=== PATIENT | female | born 1970 | race Caucasian/White ===

== ENCOUNTER 2020-07-17 10:55 | Outpatient (REF) | payer OTHER, SELFPAY ==
[2020-07-17 11:31] LABS: MANUAL DIFF FLAG NO
[2020-07-17 11:37] LABS: Basophils Percent Auto 0.3 % (0-2); Eosinophils Absolute Auto 0.1 X10*3/uL (0.0-0.4); Hematocrit 40.8 % (37-47); Hemoglobin 13.4 g/dl (12.0-16.0); Imm Gran Abs Auto 0.03 X10*3/uL (0.00-0.03); Imm Gran Pct Auto 0.5 % (0.0-0.4); Lymphocytes Absolute Auto 2.1 X10*3/uL (1.2-4.9); Lymphocytes Percent Auto 30.8 % (20-40); Mean Corpuscular HGB Conc 32.8 g/dl (31.0-35.0); Mean Corpuscular Hemoglobin 29.6 pg (27.0-33.0); Mean Corpuscular Volume 90.3 fL (80-98); Mean Platelet Volume 9.8 fL (9.4-12.3); Monocytes Absolute Auto 0.6 X10*3/uL (0.1-1.2); Monocytes Percent Auto 9.2 % (2-11); Neutrophils Absolute Auto 3.8 X10*3/uL (2.0-8.3); Neutrophils Percent Auto 57.2 % (45-73); Platelet Count 238 X10*3/uL (160-400); Red Blood Count 4.52 X10*6/uL (4.20-5.50); Red Cell Distribution Width 13.2 % (11.0-16.0); White Blood Count 6.7 X10*3/uL (4.8-10.8)
[2020-07-17 11:59] LABS: Alanine Aminotransferase 17 U/L (0-31); Alkaline Phosphatase 81 U/L (39-117); Anion Gap 12 (12-20); Aspartate Amino Transferase 17 U/L (5-31); Bilirubin Total 0.3 mg/dL (0.0-1.0); Blood Urea Nitrogen 23 mg/dL (9-16); Calcium 8.9 mg/dL (8.4-10.2); Carbon Dioxide 26 mmol/L (22-29); Chloride 104 mmol/L (96-108); Cholesterol 159 mg/dL; Estimated Glomerular Filt Rate > 60; Glucose Fasting 92 mg/dL (60-99); HDL Cholesterol 51 mg/dL; Iron 80 mcg/dL (30-160); LDL Cholesterol Calculated 79 mg/dl; Percent Iron Saturation 19 % (15-50); Potassium 4.1 mmol/l (3.3-5.1); Sodium 138 mmol/L (135-145); Total Iron Binding Capacity 411 mcg/dL (228-428); Total Protein 6.8 g/dL (6.5-8.0); Triglycerides 145 mg/dL; Unsaturated Iron Binding 331 ug/dL
[2020-07-17 12:30] LABS: TSH reflex Free T4 2.78 mIU/mL (0.32-4.0); Vitamin D 25-OH Total 5.2 ng/mL (>30)
== END 2020-07-17 10:56 | disposition home or self-care (01) ==
LOC: HO.LAB 10:55
PROVIDERS: PCP Family Medicine; Visit Provider Family Medicine
DX: Z86.39 Personal history of other endocrine, nutritional and metabolic disease (principal); D64.9 Anemia, unspecified
CPT/HCPCS: 36415; 80053; 80061; 82306; 83540; 84443; 85025

== ENCOUNTER 2020-08-03 16:42 | Outpatient (REF) | payer OTHER, SELFPAY ==
[2020-08-03 18:23] LABS: Vitamin D 25-OH Total 24.9 ng/mL (>30)
== END 2020-08-03 16:43 | disposition home or self-care (01) ==
LOC: HO.LAB 16:42
PROVIDERS: PCP Family Medicine; Visit Provider Family Medicine
DX: E55.9 Vitamin D deficiency, unspecified (principal)
CPT/HCPCS: 36415; 82306

== ENCOUNTER 2020-09-25 15:24 | Outpatient (REF) | payer OTHER, SELFPAY ==
[2020-09-25 16:50] LABS: Vitamin D 25-OH Total 55.8 ng/mL (>30)
== END 2020-09-25 15:25 | disposition home or self-care (01) ==
LOC: HO.LAB 15:24
PROVIDERS: PCP Family Medicine; Visit Provider Family Medicine
DX: E55.9 Vitamin D deficiency, unspecified (principal)
CPT/HCPCS: 36415; 82306

== ENCOUNTER 2020-12-26 15:45 | Outpatient (REF) | payer OTHER, SELFPAY ==
[2020-12-26 17:33] LABS: Vitamin D 25-OH Total 39.3 ng/mL (>30)
== END 2020-12-26 15:46 | disposition home or self-care (01) ==
LOC: HO.LAB 15:45
PROVIDERS: PCP Family Medicine; Visit Provider Family Medicine
DX: E55.9 Vitamin D deficiency, unspecified (principal)
CPT/HCPCS: 36415; 82306

== ENCOUNTER 2021-03-30 15:06 | Outpatient (REF) | payer OTHER, SELFPAY ==
[2021-03-30 16:23] LABS: Alanine Aminotransferase 132 U/L (0-31); Albumin Level 4.1 g/dL (3.5-5.0); Alkaline Phosphatase 91 U/L (39-117); Anion Gap 12 (12-20); Aspartate Amino Transferase 143 U/L (5-31); Bilirubin Total 0.2 mg/dL (0.0-1.0); Blood Urea Nitrogen 19 mg/dL (9-16); Calcium 9.2 mg/dL (8.4-10.2); Carbon Dioxide 27 mmol/L (22-29); Chloride 105 mmol/L (96-108); Estimated Glomerular Filt Rate > 60; Glucose Random 102 mg/dL (60-115); Potassium 4.2 mmol/L (3.3-5.1); Sodium 140 mmol/L (135-145); Total Protein 6.7 g/dL (6.5-8.0)
== END 2021-03-30 15:07 | disposition home or self-care (01) ==
LOC: HO.LAB 15:06
PROVIDERS: PCP Family Medicine; Visit Provider Family Medicine
DX: M85.80 Other specified disorders of bone density and structure, unspecified site (principal); E55.9 Vitamin D deficiency, unspecified
CPT/HCPCS: 36415; 80053; 82306

== ENCOUNTER 2021-04-19 15:01 | Outpatient (REF) | payer OTHER, SELFPAY ==
[2021-04-19 15:49] LABS: Appearance Urine HAZY; Color Urine YELLOW; Glucose Urine UA NEG (NEG); Leukocyte Esterase Urine NEG (NEG); Nitrite Urine NEG (NEG); Specific Gravity - Urine >= 1.030 (1.005-1.025); Urine Blood TRACE (NEG); Urine Ketones NEG (NEG); Urine Protein NEG (NEG-TRACE)
[2021-04-19 16:05] LABS: Bacteria Urine TRACE /LPF; Mucus Urine 1+ /LPF; Renal Epithelial Cells Urine TRACE /LPF; Squamous Epithelial Cell Urine 1+ /LPF; WBC Urine 0-2 /HPF (0-4)
[2021-04-19 16:05] LABS: Alanine Aminotransferase 156 U/L (0-31); Alkaline Phosphatase 102 U/L (39-117); Anion Gap 12 (12-20); Aspartate Amino Transferase 116 U/L (5-31); Bilirubin Total 0.2 mg/dL (0.0-1.0); Blood Urea Nitrogen 16 mg/dL (9-16); Calcium 9.3 mg/dL (8.4-10.2); Carbon Dioxide 27 mmol/L (22-29); Chloride 105 mmol/L (96-108); Estimated Glomerular Filt Rate > 60; Glucose Random 136 mg/dL (60-115); Potassium 3.9 mmol/L (3.3-5.1); Sodium 140 mmol/L (135-145); Total Protein 6.6 g/dL (6.5-8.0)
== END 2021-04-19 15:02 | disposition home or self-care (01) ==
LOC: HO.LAB 15:01
PROVIDERS: PCP Family Medicine; Visit Provider Family Medicine
DX: R74.8 Abnormal levels of other serum enzymes (principal)
CPT/HCPCS: 36415; 80053; 81001

== ENCOUNTER 2022-02-12 14:11 | Outpatient (REF) | payer OTHER, SELFPAY ==
[2022-02-12 14:36] LABS: MANUAL DIFF FLAG NO
[2022-02-12 15:43] LABS: Appearance Urine Clear; Color Urine Yellow; Glucose Urine UA Negative (Negative); Leukocyte Esterase Urine Negative (Negative); Nitrite Urine Negative (Negative); PH 6.5 (5.0-8.0); Specific Gravity - Urine 1.015 (1.005-1.025); Urine Blood Negative (Negative); Urine Ketones Negative (Negative); Urine Protein Negative (Neg-Trace)
[2022-02-12 15:46] LABS: Basophils Percent Auto 0.4 % (0-2); Eosinophils Absolute Auto 0.2 X10*3/uL (0.0-0.4); Eosinophils Percent Auto 2.2 % (0-4); Hematocrit 42.4 % (37.0-47.0); Hemoglobin 14.5 g/dl (12.0-16.0); Imm Gran Abs Auto 0.02 X10*3/uL (0.00-0.03); Imm Gran Pct Auto 0.3 % (0.0-0.4); Lymphocytes Absolute Auto 2.5 X10*3/uL (1.2-4.9); Mean Corpuscular HGB Conc 34.2 g/dl (31.0-35.0); Mean Corpuscular Hemoglobin 31.7 pg (27.0-33.0); Mean Corpuscular Volume 92.8 fL (80.0-98.0); Mean Platelet Volume 10.8 fL (9.4-12.3); Monocytes Absolute Auto 0.6 X10*3/uL (0.1-1.2); Monocytes Percent Auto 8.9 % (2-11); Neutrophils Absolute Auto 3.9 x10*3/uL (2.0-8.3); Neutrophils Percent Auto 53.2 % (45-73); Platelet Count 183 X10*3/uL (160-400); Red Blood Count 4.57 X10*6/uL (4.20-5.50); White Blood Count 7.2 X10*3/uL (4.8-10.8)
[2022-02-12 16:31] LABS: Creatinine Urine 164.24 mg/dL; Microalbum/Creatinine Ratio Ur 4.8 ug/mg cr
[2022-02-12 16:33] LABS: Alanine Aminotransferase 17 U/L (0-31); Albumin Level 4.5 g/dL (3.5-5.0); Alkaline Phosphatase 78 U/L (39-117); Anion Gap 15 (12-20); Aspartate Amino Transferase 22 U/L (5-31); Bilirubin Total 0.3 mg/dL (0.0-1.0); Blood Urea Nitrogen 12 mg/dL (9-16); Calcium 9.7 mg/dL (8.4-10.2); Carbon Dioxide 26 mmol/L (22-29); Chloride 103 mmol/L (96-108); Cholesterol 228 mg/dL; Estimated Glomerular Filt Rate > 60; Glucose Fasting 83 mg/dL (60-99); HDL Cholesterol 62 mg/dL; LDL Cholesterol Calculated 137 mg/dl; Potassium 4.3 mmol/L (3.3-5.1); Sodium 140 mmol/L (135-145); Total Protein 7.2 g/dL (6.5-8.0); Triglycerides 145 mg/dL
== END 2022-02-12 14:12 | disposition home or self-care (01) ==
LOC: HO.LAB 14:11
PROVIDERS: PCP Family Medicine; Visit Provider Family Medicine
DX: Z00.00 Encounter for general adult medical examination without abnormal findings (principal); I10 Essential (primary) hypertension
CPT/HCPCS: 36415; 80053; 80061; 81003; 82043; 84443; 85025

== ENCOUNTER 2022-05-16 10:23 | Outpatient (REF) | payer OTHER, SELFPAY ==
[2022-05-16 14:47] LABS: Influenza A PCR NEGATIVE (Negative); Influenza B PCR NEGATIVE (Negative); Resp Syncy Virus RNA Qual PCR NEGATIVE (Negative); SARS COV2 PCR INHOUSE NEGATIVE (Negative)
== END 2022-05-16 10:24 | disposition home or self-care (01) ==
LOC: HO.LAB 10:23
PROVIDERS: Visit Provider Nurse Practitioner Family
DX: R09.89 Other specified symptoms and signs involving the circulatory and respiratory systems (principal); Z20.822 Contact with and (suspected) exposure to COVID-19
CPT/HCPCS: 0241U

== ENCOUNTER 2022-05-21 15:03 | Outpatient (REF) | payer OTHER, SELFPAY ==
[2022-05-25 13:03] LABS: Rast Allergen SEE COMMENTS
== END 2022-05-21 15:04 | disposition home or self-care (01) ==
LOC: HO.LAB 15:03
PROVIDERS: PCP Family Medicine; Visit Provider Otolaryngology
DX: J30.89 Other allergic rhinitis (principal)
CPT/HCPCS: 36415; 82785; 86003

== ENCOUNTER 2022-06-21 14:50 | Outpatient (REF) | payer OTHER, SELFPAY ==
[2022-06-21 15:48] LABS: COVID-19 Test Negative (Negative); IDNOW Serial# BCCEAD1C
== END 2022-06-21 14:51 | disposition home or self-care (01) ==
LOC: HO.LAB 14:50
PROVIDERS: Visit Provider Internal Medicine
DX: Z20.822 Contact with and (suspected) exposure to COVID-19 (principal)
CPT/HCPCS: 87635; C9803

== ENCOUNTER 2023-02-11 13:33 | Outpatient (AMB) | payer OTHER, SELFPAY ==
[2023-02-11 13:44] VITALS: BP 126/70; PULSE 120; RESP 12; TEMP 36.1; O2SAT 98; BMI 33.4
--- NOTE | 2023-02-11 13:44 | A.OFFPC_ITS ---
Vital Signs 02/11/23 13:44 Height 5 ft 2 in Weight 182 lb 6 oz BMI 33.4 BP 126/70 Blood Pressure Location Lt brachial Position Sitting Respiration 12 Pulse 120 H Pulse Source Pulse Oximeter Temp 97 F Temp Source Temporal Artery Scan Pulse Oximetry (%) 98 Oxygen Delivery Method Room Air Intake Visit Reasons: Body aches, chills, sore throat, headaches Intake Note: Patient states that her symptoms started Friday afternoon. headache, sore throat, body aches, and chills Tug Captain Required: No Accompanied by: Self / Same As Patient Allergies environmental allergies Allergy (Intermediate, Verified 02/11/23 14:22) Runny Nose erythromycin base Allergy (Unknown, Verified 02/11/23 14:22) Hives paclitaxel [From Taxol] Allergy (Unknown, Verified 02/11/23 14:22) Unknown Iodinated Contrast Media Allergy (Verified 02/11/23 14:22) Hives Medication List - Last Reconciled 02/11/23 by Haydee Coe CNP acetaminophen 650 mg PO Q4H PRN anastrozole 1 mg PO DAILY blood pressure monitor Automatic, Digital. Daily As directed, 999 days/Lifetime calcium citrate 250 mg PO DAILY cholecalciferol (vitamin D3) 4,000 units PO DAILY 30 days desvenlafaxine succinate ER 100 mg PO DAILY folic acid 0.4 mg PO DAILY hydrochlorothiazide 12.5 mg PO DAILY levocetirizine 5 mg PO DAILY melatonin 3 mg PO BEDTIME PRN turmeric mg PO Tobacco use date assessed: 02/11/23 Dental Screening Dental Screen Date: 02/11/23 Did you have a dental visit in the last 12 months?: Yes Did you have a dental problem in the last 6 months where you did not have access to dental care?: No Was dental information given to patient?: Patient has dentist HPI HPI Comments History of Present Illness Details 52-year-old female presents with complaints of headache, sore throat, body aches, and chills. She reports associated fatigue and mild nausea. She notes her symptoms have been ongoing for the past 3 days and have not progress. She has been taking Excedrin migraine with improvement of the headache. She denies sick contact. [facility] Medical History No pertinent past medical history Surgical History H/O laparoscopy History of mastectomy History of oral surgery History of reconstruction of both breasts Family History Father Depression HTN (hypertension) CVD (cardiovascular disease) Mother Arrhythmia Anxiety Eating disorder Maternal Grandmother Lung cancer Maternal Grandfather Lupus Emphysema, unspecified Paternal Grandmother Anorexia Heart failure Paternal Grandfather Heart disease Parkinson disease Brother No problems noted. Sister No problems noted. Social History Housing: House Alcohol intake: never Patient Tobacco Use Status: Never used Tobacco e-Cigarette/Vaping Use: Never Used Second Hand Smoke Exposure: No service: No Current occupational status: unemployed Current occupational exposures/hazards: No Cognitive needs: No Hearing needs: No Vision needs: No Questionnaire Thrive Questionnaire Date Thrive assessed: 05/20/22 NOHEMI-7 AMB Questionnaire NOHEMI-7 Date NOHEMI - 7 assessed: 04/25/21 Source: Developed by Drs. Jay Jay Mcintosh, Edyta Verduzco, Bryan Hensley and colleagues, with an educational kathi from [employer]. Review of Systems Const Details: Const Reports chills, Reports fatigue, Denies fever(s), reports headache(s) and Denies weakness ENT Reports as per HPI Card Denies chest pain, Denies lightheadedness, Denies dyspnea and Denies other (Palpitations) Resp Denies cough, Denies dyspnea, Denies wheezing and Denies other ( shortness of breath) GI Denies abdominal pain, Denies melena, Denies hematochezia, Denies change in bowel habits, Denies dyspepsia and Denies nausea Denies hematuria and Denies dysuria Musc Denies abnormal gait, Denies myalgias, Denies arthralgias, Denies numbness and Denies tingling Skin/Breast Denies rash, Denies unusual bruising and Denies wounds Neuro Denies abnormal gait, Denies dizziness, Denies headache(s), Denies memory loss, Denies numbness, Denies Sensory deficit (Neuro), Denies tingling and Denies weakness Psych Denies anxiety, Denies depression, Denies memory loss Endo Denies cold intolerance, Reports fatigue, Denies heat intolerance, Denies polydipsia and Denies polyuria Aller/Immun Denies wheezing Physical exam (Primary Care) Vital Signs: Last Vital Signs Temp 97 F 02/11/23 13:44 Pulse 120 H 02/11/23 13:44 Resp 12 02/11/23 13:44 BP 126/70 02/11/23 13:44 Pulse Ox 98 02/11/23 13:44 Oxygen Delivery Method Room Air 02/11/23 13:44 BMI result Body Mass Index 33.4 Tobacco/Smoking Status: Tobacco use Status Tobacco use date assessed 02/11/23 02/11/23 13:56 Patient Tobacco Use Status Never used Tobacco 02/11/23 13:56 e-Cigarette/Vaping Use Never Used 02/11/23 13:56 Thrive Assessment: Date of Thrive Assessment Date Thrive assessed 05/20/22 02/11/23 13:56 Const Other: General: no acute distress and well developed Nutritional Appearance: well nourished Orientation/consciousness: patient oriented x3 HENMT Head is normocephalic Bilateral ear canal and TM are normal Nasal turbinates are pink and moist Significant erythema and yellow patches noted to the oropharynx, tonsils are enlarged Sinuses are nontender with palpation No auricular or cervical lymphadenopathy Eyes General: appearance normal, both eyes and all related structures Pupils: Equal, round and reactive pupils present EOM: EOMs intact bilaterally Resp Effort & Inspection: normal respiratory effort Auscultation: clear to auscultation bilaterally Cardio Rate: regular rate Rhythm: regular rhythm Heart sounds: S1 normal heart sound present, S2 normal heart sound present, no gallops, no murmurs and no rubs GI Palpation (GI): No Abdominal aortic bruit present, Soft to palpation, nontender, No hepatosplenomegaly present and No Rebound tenderness present Auscultation: normal bowel sounds General: Yes no CVA tenderness Back/Spine/Pelvis Back: no CVA tenderness Cervical Spine: cervical ROM normal and No Cervical spine tenderness Thoracic/Lumbar Spine: thoraco-lumbar ROM normal, No pain with thoraco-lumbar ROM, No thoracic spinal tenderness and No lumbar spinal tenderness Extrem General: Yes normal to inspection, No edema and No calf tenderness Skin General: warm and dry. Normal skin color. Normal skin turgor Neuro General: patient oriented x3, gait normal and no focal neuro deficit Cranial nerves: Yes Equal, round and reactive pupils present Cognition (Neuro): normal cognition Gait exam (Neuro): Normal gait present Sensory Exam: No Sensory deficit (Neuro) Psych Appearance: grossly normal Affect: normal affect Attitude: cooperative Thought process: Normal thought process present Assessment and Plan Assessment & Plan (1) Strep pharyngitis: Code(s): J02.0 - Streptococcal pharyngitis Plan: Significant erythema and yellow patches noted to the oropharynx, tonsils are enlarged Amoxicillin ordered. Take as prescribed May take Tylenol or ibuprofen for pain, fever, or discomfort May gargle with warm salt water Adequate hydration encouraged Avoid kissing or sharing of utensils to limit spread Return with worsening or new symptoms Verbalized understanding and agreed with treatment plan Medications: New amoxicillin 500 mg PO BID 10 days 20 tabs 0RF Coding Level of Care Code Est Pt Level 3 (04996) Diagnoses Strep pharyngitis J02.0 Time Spent (min) 25
== END 2023-02-11 14:37 | disposition home or self-care (01) ==
PROVIDERS: PCP Family Medicine; Visit Provider Nurse Practitioner Family
DX: J02.0 Streptococcal pharyngitis (principal)
CPT/HCPCS: 99213

== ENCOUNTER 2023-02-18 13:52 | Outpatient (REF) | payer OTHER, SELFPAY ==
[2023-02-18 14:03] LABS: MANUAL DIFF FLAG NO
[2023-02-18 14:46] LABS: Basophils Percent Auto 0.5 % (0-2); Eosinophils Absolute Auto 0.2 X10*3/uL (0.0-0.4); Eosinophils Percent Auto 1.7 % (0-4); Hematocrit 42.2 % (37.0-47.0); Hemoglobin 14.2 g/dl (12.0-16.0); Imm Gran Abs Auto 0.15 X10*3/uL (0.00-0.03); Imm Gran Pct Auto 1.7 % (0.0-0.4); Lymphocytes Absolute Auto 3.1 X10*3/uL (1.2-4.9); Lymphocytes Percent Auto 35.7 % (20-40); Mean Corpuscular HGB Conc 33.6 g/dl (31.0-35.0); Mean Corpuscular Hemoglobin 30.5 pg (27.0-33.0); Mean Corpuscular Volume 90.8 fL (80.0-98.0); Mean Platelet Volume 10.1 fL (9.4-12.3); Monocytes Absolute Auto 0.5 X10*3/uL (0.1-1.2); Neutrophils Absolute Auto 4.7 x10*3/uL (2.0-8.3); Neutrophils Percent Auto 54.4 % (45-73); Platelet Count 282 X10*3/uL (160-400); Red Blood Count 4.65 X10*6/uL (4.20-5.50); Red Cell Distribution Width 12.1 % (11.0-16.0); White Blood Count 8.7 X10*3/uL (4.8-10.8)
[2023-02-18 14:51] LABS: Appearance Urine Clear; Color Urine Yellow; Glucose Urine UA Negative (Negative); Leukocyte Esterase Urine Small (1+) (Negative); Nitrite Urine Negative (Negative); UMIC TRIGGER UA YES; Urine Blood Negative (Negative); Urine Ketones Trace mg/dL (Negative); Urine Protein Trace mg/dL (Neg-Trace)
[2023-02-18 15:03] LABS: Bacteria Urine None Seen (None Seen); Hyaline Casts Urine 0-2 /LPF (0-2); Squamous Epithelial Cell Urine >20 /HPF (0-2); WBC Urine 0-5 /HPF (0-5)
[2023-02-18 15:20] LABS: Alanine Aminotransferase 15 U/L (0-31); Albumin Level 4.4 g/dL (3.5-5.0); Alkaline Phosphatase 74 U/L (39-117); Anion Gap 12 (12-20); Aspartate Amino Transferase 17 U/L (5-31); Bilirubin Total 0.3 mg/dL (0.0-1.0); Blood Urea Nitrogen 14 mg/dL (9-16); Calcium 10.2 mg/dL (8.4-10.2); Carbon Dioxide 26 mmol/L (22-29); Chloride 104 mmol/L (96-108); Cholesterol 228 mg/dL (<200); Estimated Glomerular Filt Rate > 60; Glucose Fasting 99 mg/dL (60-99); HDL Cholesterol 49 mg/dL (>40); LDL Cholesterol Calculated 128 mg/dL (<100); Sodium 138 mmol/L (135-145); Total Protein 7.8 g/dL (6.5-8.0); Triglycerides 256 mg/dL (<150)
[2023-02-18 15:37] LABS: Vitamin D 25-OH Total 82.5 ng/mL (>30)
[2023-02-18 17:02] LABS: Creatinine Urine 214.59 mg/dL; Microalbum/Creatinine Ratio Ur 3.7 ug/mg cr (<30)
== END 2023-02-18 13:53 | disposition home or self-care (01) ==
LOC: HO.LAB 13:52
PROVIDERS: PCP Family Medicine; Visit Provider Family Medicine
DX: Z00.00 Encounter for general adult medical examination without abnormal findings (principal); E55.9 Vitamin D deficiency, unspecified; I10 Essential (primary) hypertension
CPT/HCPCS: 36415; 80053; 80061; 81001; 82043; 82306; 84443; 85025

== ENCOUNTER 2023-03-04 11:47 | Outpatient (AMB) | payer OTHER, SELFPAY ==
[2023-03-04 12:01] VITALS: BP 118/62; PULSE 86; O2SAT 98; BMI 34.0
--- NOTE | 2023-03-04 12:01 | A.OFFPC_ITS ---
Vital Signs 03/04/23 12:01 Height 5 ft 2 in Weight 186 lb BMI 34.0 BP 118/62 Blood Pressure Location Lt brachial Position Sitting Pulse 86 Pulse Source Pulse Oximeter Pulse Oximetry (%) 98 Oxygen Delivery Method Room Air Intake Visit Reasons: CPE with f/u labs and health maint. Intake Note: Patient is here for a physical today. She was seen at [facility] on the 03/01 for dx of Mnaning's palsey. Patient is also requesting 90 days refill on her blood pressure medication. Allergies environmental allergies Allergy (Intermediate, Verified 03/04/23 12:07) Runny Nose erythromycin base Allergy (Unknown, Verified 03/04/23 12:07) Hives paclitaxel [From Taxol] Allergy (Unknown, Verified 03/04/23 12:07) Unknown Iodinated Contrast Media Allergy (Verified 03/04/23 12:07) Hives Medication List - Last Reconciled 03/04/23 by Elver Garnett MD acetaminophen 650 mg PO Q4H PRN anastrozole 1 mg PO DAILY blood pressure monitor Automatic, Digital. Daily As directed, 999 days/Lifetime calcium citrate 250 mg PO DAILY cholecalciferol (vitamin D3) 4,000 units PO DAILY 30 days desvenlafaxine succinate ER 100 mg PO DAILY folic acid 0.4 mg PO DAILY hydrochlorothiazide 12.5 mg PO DAILY 90 days levocetirizine 5 mg PO DAILY melatonin 3 mg PO BEDTIME PRN turmeric mg PO Tobacco use date assessed: 02/11/23 Dental Screening Dental Screen Date: 03/04/23 Did you have a dental visit in the last 12 months?: No Did you have a dental problem in the last 6 months where you did not have access to dental care?: No Was dental information given to patient?: Patient has dentist HPI CPE with f/u labs and health maint. HPI Details 52 y/o female presents for a CPE with f/u labs and health maintenance. Labs were drawn 02/18/23. Reviewed labs with pt. Triglycerides 256. TC 228. LDL 128. HDL 49. Blood pressure today 118/62. She is on HCTZ 12.5mg daily. Pt reports she has a mammogram coming up in April. She reports pap smear last June. HPI Comments History of Present Illness Details Documentation assistance for Elver Garnett MD, was provided by Faustino Llenardo Silveira,? [employer] on 03/04/2023 12:29 PM EST. I, Dr. Garnett, have read, observed, and verified documentation.? PFSH Medical History No pertinent past medical history Surgical History H/O laparoscopy History of mastectomy History of oral surgery History of reconstruction of both breasts Family History Father Depression HTN (hypertension) CVD (cardiovascular disease) Mother Arrhythmia Anxiety Eating disorder Maternal Grandmother Lung cancer Maternal Grandfather Lupus Emphysema, unspecified Paternal Grandmother Anorexia Heart failure Paternal Grandfather Heart disease Parkinson disease Brother No problems noted. Sister No problems noted. Social History Housing: House Alcohol intake: never Patient Tobacco Use Status: Never used Tobacco e-Cigarette/Vaping Use: Never Used Second Hand Smoke Exposure: No service: No Current occupational status: unemployed Current occupational exposures/hazards: No Cognitive needs: No Hearing needs: No Vision needs: No Questionnaire Thrive Questionnaire Date Thrive assessed: 05/20/22 NOHEMI-7 AMB Questionnaire NOHEMI-7 Date NOHEMI - 7 assessed: 04/25/21 Source: Developed by Drs. Jay Jay Mcintosh, Edyta Verduzco, Bryan Hensley and colleagues, with an educational kathi from [employer]. Review of Systems Const Denies chills, Denies fatigue, Denies fever(s), Denies headache(s) and Denies weakness Eyes Denies change in vision ENT Denies dizziness, Denies headache(s), Denies hearing loss, Denies nasal congestion, Denies sinus pain, Denies sinus pressure and Denies sore throat Card Denies chest pain, Denies lightheadedness, Denies dyspnea and Denies other (pa lpitations) Resp Denies cough, Denies dyspnea and Denies wheezing GI Denies abdominal pain, Denies melena, Denies hematochezia, Denies change in bowel habits, Denies dyspepsia and Denies nausea Denies hematuria and Denies dysuria Musc Denies abnormal gait, Denies myalgias, Denies arthralgias, Denies numbness and Denies tingling Skin/Breast Denies rash, Denies unusual bruising and Denies wounds Neuro Denies abnormal gait, Denies dizziness, Denies headache(s), Denies memory loss, Denies numbness, Denies Sensory deficit (Neuro), Denies tingling and Denies weakness Psych Denies anxiety, Denies depression and Denies memory loss Endo Denies cold intolerance, Denies fatigue, Denies heat intolerance, Denies polydipsia and Denies polyuria Logan/Lymph Denies easy bleeding and Denies easy bruising Aller/Immun Denies wheezing Physical exam (Primary Care) Vital Signs: Last Vital Signs Pulse 86 03/04/23 12:01 BP 118/62 03/04/23 12:01 Pulse Ox 98 03/04/23 12:01 Oxygen Delivery Method Room Air 03/04/23 12:01 BMI result Body Mass Index 34.0 Tobacco/Smoking Status: Tobacco use Status Tobacco use date assessed 02/11/23 03/04/23 12:02 Patient Tobacco Use Status Never used Tobacco 03/04/23 12:02 e-Cigarette/Vaping Use Never Used 03/04/23 12:02 Thrive Assessment: Date of Thrive Assessment Date Thrive assessed 05/20/22 03/04/23 12:02 Const General: no acute distress, well developed, alert and awake Nutritional Appearance: obese Orientation/consciousness: patient oriented x3 HENMT Head: Yes normocephalic and Yes atraumatic Ears: hearing grossly normal bilaterally and TM's normal bilaterally General nose exam: Normal external nose present and Normal nares present Mouth: Normal oral and palatal mucosa present and moist mucous membranes Teeth and gingiva: dentition normal Throat: Yes posterior oropharynx normal Eyes General: appearance normal, both eyes and all related structures Pupils: Equal, round and reactive pupils present and Pupil accommodation reflex normal EOM: EOMs intact bilaterally Neck Neck: Yes normal visual inspection, Yes no lymphadenopathy and Yes trachea midline Thyroid: Thyroid normal Carotids: no bruits Lymphatic: no lymphadenopathy noted Chest Chest palpation & inspection: normal inspection of the chest Resp Effort & Inspection: normal respiratory effort Auscultation: clear to auscultation bilaterally Cardio Rate: regular rate Rhythm: regular rhythm Heart sounds: S1 normal heart sound present, S2 normal heart sound present, no gallops, no murmurs and no rubs Bruits: no abdominal aortic bruits and no carotid bruits GI Palpation (GI): No Abdominal aortic bruit present, Soft to palpation, nontender, No hepatosplenomegaly present and No Rebound tenderness present Auscultation: normal bowel sounds General: Yes no CVA tenderness Back/Spine/Pelvis Back: no CVA tenderness Cervical Spine: cervical ROM normal and No Cervical spine tenderness Thoracic/Lumbar Spine: thoraco-lumbar ROM normal, No pain with thoraco-lumbar ROM, No thoracic spinal tenderness and No lumbar spinal tenderness Skin Lesions: no lesions Rashes: no rashes Trauma: no lacerations or abrasions Wounds: no wounds Nails: normal Neuro General: patient oriented x3 Cranial nerves: Yes Equal, round and reactive pupils present Cognition (Neuro): normal cognition Gait exam (Neuro): Normal gait present Motor exam (neuro): 5/5 motor strength present throughout Sensory Exam: No Sensory deficit (Neuro) Deep tendon reflexes (DTR's): Right patellar reflex intensity grade: 2+ and Left patellar reflex intensity grade: 2+ Extrem General: Yes normal to inspection and No edema Psych Appearance: grossly normal Affect: normal affect Attitude: cooperative Thought process: Normal thought process present Assessment and Plan Assessment & Plan (1) Adult general medical exam: Code(s): Z00.00 - Encounter for general adult medical examination without abnormal findings Plan: 52-year-old female presents for complete physical exam Encouraged healthy diet with active lifestyle and plenty of exercise (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 Can also use B12 Keep I closed and well moisturized with gel eye drops or ointment. Referred to ophthalmology (3) Essential hypertension: Code(s): I10 - Essential (primary) hypertension Plan: Blood pressure is controlled. Goal is less than 140/90 Continue current medications (4) Hypertriglyceridemia: Code(s): E78.1 - Pure hyperglyceridemia Plan: Encouraged a diet lower in saturated fats and cholesterol Continue weight loss and exercise Watch carbohydrates (5) Screening for colon cancer: Code(s): Z12.11 - Encounter for screening for malignant neoplasm of colon Plan: Followed by gastroenterology Has appointment in 6 months for follow-up (6) Screening for cervical cancer: Code(s): Z12.4 - Encounter for screening for malignant neoplasm of cervix Plan: Up-to-date Follow-up with administrative project coordinator as recommended (7) Breast cancer screening by mammogram: Code(s): Z12.31 - Encounter for screening mammogram for malignant neoplasm of breast Plan: Followed by Heme-Onc Up to date Orders: Orders Lyme IgG/IgM w/reflex to WB Today G51.0 - Manning's palsy IRON PROFILE Today G51.0 - Manning's palsy Referrals Ophthalmology Referral G51.0 - Manning's palsy Medications: New mecobalamin (vitamin B12) 1,000 mcg PO DAILY 90 days 90 tabs 2RF hydrochlorothiazide 12.5 mg PO DAILY 90 days 90 tabs 3RF Changed From cholecalciferol (vitamin D3) 4,000 units PO DAILY 30 days 30 caps 3RF G51.0 - Manning's palsy To cholecalciferol (vitamin D3) 2,000 units PO DAILY 30 days 30 caps 3RF G51.0 - Manning's palsy Coding Level of Care Code Est Pt Level 3 (78223) Est Pt Prev Care 40-64y(12204) Diagnoses Adult general medical exam Z00.00 Manning's palsy G51.0 Essential hypertension I10 Hypertriglyceridemia E78.1 Screening for colon cancer Z12.11 Screening for cervical cancer Z12.4 Breast cancer screening by mammogram Z12.31
== END 2023-03-04 12:59 | disposition home or self-care (01) ==
PROVIDERS: Visit Provider Family Medicine
DX: Z00.00 Encounter for general adult medical examination without abnormal findings (principal); G51.0 Bell's palsy; I10 Essential (primary) hypertension; E78.1 Pure hyperglyceridemia
CPT/HCPCS: 99396

== ENCOUNTER 2023-03-11 10:31 | Outpatient (AMB) | payer OTHER, SELFPAY ==
[2023-03-11 10:38] VITALS: BP 116/78; PULSE 108; RESP 12; TEMP 36.6; O2SAT 98; BMI 33.3
--- NOTE | 2023-03-11 10:38 | A.OFFPC_ITS ---
Vital Signs 03/11/23 10:38 Height 5 ft 2 in Weight 182 lb 4 oz BMI 33.3 BP 116/78 Blood Pressure Location Lt brachial Position Sitting Respiration 12 Pulse 108 H Pulse Source Pulse Oximeter Temp 97.8 F Temp Source Temporal Artery Scan Pulse Oximetry (%) 98 Oxygen Delivery Method Room Air Intake Visit Reasons: continued ear and facial pain Intake Note: Patient states that pin is keeping her up at night and she hasn't been able to sleep. Patient states that it feels like there are 2 different things causing the ear pain. Patient states that ear pain feels like it make be connected to jaw pain as well. Accompanied by: Self / Same As Patient Allergies environmental allergies Allergy (Intermediate, Verified 03/11/23 10:50) Runny Nose erythromycin base Allergy (Unknown, Verified 03/11/23 10:50) Hives paclitaxel [From Taxol] Allergy (Unknown, Verified 03/11/23 10:50) Unknown Iodinated Contrast Media Allergy (Verified 03/11/23 10:50) Hives Medication List - Last Reconciled 03/11/23 by Haydee Coe CNP acetaminophen 650 mg PO Q4H PRN anastrozole 1 mg PO DAILY blood pressure monitor Automatic, Digital. Daily As directed, 999 days/Lifetime calcium citrate 250 mg PO DAILY cholecalciferol (vitamin D3) 2,000 units PO DAILY 30 days desvenlafaxine succinate ER 100 mg PO DAILY folic acid 0.4 mg PO DAILY hydrochlorothiazide 12.5 mg PO DAILY 90 days levocetirizine 5 mg PO DAILY mecobalamin (vitamin B12) 1,000 mcg PO DAILY 90 days melatonin 3 mg PO BEDTIME PRN turmeric mg PO Tobacco use date assessed: 02/11/23 Dental Screening Dental Screen Date: 03/11/23 Did you have a dental visit in the last 12 months?: No Did you have a dental problem in the last 6 months where you did not have access to dental care?: No Was dental information given to patient?: Patient has dentist HPI HPI Comments History of Present Illness Details 52-year-old female presents with complai nts of continued left ear and facial pain. She described the pain as shooting from the left outer ear to the left jaw. Ibuprofen, Tylenol, and Excedrin have not been effective. She notes the pain started after she completed a course of prednisone and antiviral 2 days ago. She states the pain interrupts her sleep for the past 2 nights. 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 She was evaluated on 03/04/2023 by her PCP for Manning's palsy. She was referred to Ophthalmology; she notes she as an appointment tomorrow. She has not gotten her repeat lyme titers blood work done. [facility] Medical History No pertinent past medical history Surgical History History of reconstruction of both breasts History of mastectomy H/O laparoscopy History of oral surgery Family History Father Depression HTN (hypertension) CVD (cardiovascular disease) Mother Arrhythmia Anxiety Eating disorder Maternal Grandmother Lung cancer Maternal Grandfather Lupus Emphysema, unspecified Paternal Grandmother Anorexia Heart failure Paternal Grandfather Heart disease Parkinson disease Brother No problems noted. Sister No problems noted. Social History Housing: House Alcohol intake: never Patient Tobacco Use Status: Never used Tobacco e-Cigarette/Vaping Use: Never Used Second Hand Smoke Exposure: No service: No Current occupational status: unemployed Current occupational exposures/hazards: No Cognitive needs: No Hearing needs: No Vision needs: No Questionnaire Thrive Questionnaire Date Thrive assessed: 05/20/22 NOHEMI-7 AMB Questionnaire NOHEMI-7 Date NOHEMI - 7 assessed: 04/25/21 Source: Developed by Drs. Jay Jay Mcintosh, Edyta Verduzco, Bryan Hensley and colleagues, with an educational kathi from [employer]. Review of Systems Const Details: Const Denies chills, Denies fatigue, Denies fever(s), Denies headache(s) and Denies weakness ENT Reports as per HPI Card Denies chest pain, Denies lightheadedness, Denies dyspnea and Denies other (Palpitations) Resp Denies cough, Denies dyspnea, Denies wheezing and Denies other ( shortness of breath) GI Denies abdominal pain, Denies melena, Denies hematochezia, Denies change in bowel habits, Denies dyspepsia and Denies nausea Denies hematuria and Denies dysuria Musc Denies abnormal gait, Denies myalgias, Denies arthralgias, Denies numbness and Denies tingling Skin/Breast Denies rash, Denies unusual bruising and Denies wounds Neuro Denies abnormal gait, Denies dizziness, Denies headache(s), Denies memory loss, Denies numbness, Denies Sensory deficit (Neuro), Denies tingling and Denies weakness Psych Denies anxiety, Denies depression, Denies memory loss Endo Denies cold intolerance, Denies fatigue, Denies heat intolerance, Denies polydipsia and Denies polyuria Aller/Immun Denies wheezing Physical exam (Primary Care) Vital Signs: Last Vital Signs Temp 97.8 F 03/11/23 10:38 Pulse 108 H 03/11/23 10:38 Resp 12 03/11/23 10:38 BP 116/78 03/11/23 10:38 Pulse Ox 98 03/11/23 10:38 Oxygen Delivery Method Room Air 03/11/23 10:38 BMI result Body Mass Index 33.3 Tobacco/Smoking Status: Tobacco use Status Tobacco use date assessed 02/11/23 03/11/23 10:48 Patient Tobacco Use Status Never used Tobacco 03/11/23 10:48 e-Cigarette/Vaping Use Never Used 03/11/23 10:48 Thrive Assessment: Date of Thrive Assessment Date Thrive assessed 05/20/22 03/11/23 10:48 Const Other: General: no acute distress and well developed Nutritional Appearance: well nourished Orientation/consciousness: patient oriented x3 HENMT Head: Yes normocephalic and Yes atraumatic Left facial droop and weakness Eyes General: appearance normal, both eyes and all related structures Pupils: Equal, round and reactive pupils present EOM: EOMs intact bilaterally Resp Effort & Inspection: normal respiratory effort Auscultation: clear to auscultation bilaterally Cardio Rate: regular rate Rhythm: regular rhythm Heart sounds: S1 normal heart sound present, S2 normal heart sound present, no gallops, no murmurs and no rubs GI Palpation (GI): No Abdominal aortic bruit present, Soft to palpation, nontender, No hepatosplenomegaly present and No Rebound tenderness present Auscultation: normal bowel sounds General: Yes no CVA tenderness Back/Spine/Pelvis Back: no CVA tenderness Cervical Spine: cervical ROM normal and No Cervical spine tenderness Thoracic/Lumbar Spine: thoraco-lumbar ROM normal, No pain with thoraco-lumbar ROM, No thoracic spinal tenderness and No lumbar spinal tenderness Extrem General: Yes normal to inspection, No edema and No calf tenderness Skin General: warm and dry. Normal skin color. 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 Take as prescribed May take ibuprofen Follow-up with Ophthalmology as planned Encouraged to get repeat Lyme titer blood work done Return with worsening or new symptoms. May referred to Neurology Verbalized understanding and agreed with treatment plan. Medications: New gabapentin 300 mg PO BID 15 days 30 caps 1RF Coding Level of Care Code Est Pt Level 3 (87466) Diagnoses Manning's palsy G51.0
== END 2023-03-11 11:09 | disposition home or self-care (01) ==
PROVIDERS: PCP Family Medicine; Visit Provider Nurse Practitioner Family
DX: G51.0 Bell's palsy (principal)
CPT/HCPCS: 99213

== ENCOUNTER 2023-05-02 13:33 | Outpatient (REF) | payer OTHER, SELFPAY ==
[2023-05-02 14:38] LABS: Iron 85 mcg/dL (30-160); Percent Iron Saturation 25 % (15-50); Total Iron Binding Capacity 334 mcg/dL (228-428); Unsaturated Iron Binding 249 ug/dL
[2023-05-02 16:28] LABS: Appearance Urine Clear; Color Urine Yellow; Glucose Urine UA Negative (Negative); Leukocyte Esterase Urine Moderate (2+) (Negative); Nitrite Urine Negative (Negative); PH 5.5 (5.0-9.0); Specific Gravity - Urine 1.015 (1.005-1.025); UMIC TRIGGER UA YES; Urine Blood Trace (Negative); Urine Ketones Negative (Negative); Urine Protein Negative (Neg-Trace)
[2023-05-02 16:36] LABS: Bacteria Urine Trace (None Seen); Hyaline Casts Urine 0-2 /LPF (0-2); RBC Urine 0-2 /HPF (0-2)
[2023-05-07 02:09] LABS: Lyme Abs Screen <0.90 index
== END 2023-05-02 13:34 | disposition home or self-care (01) ==
LOC: HO.LAB 13:33
PROVIDERS: PCP Family Medicine; Visit Provider Family Medicine
DX: G51.0 Bell's palsy (principal)
CPT/HCPCS: 36415; 81001; 83540; 86617; 86618

== ENCOUNTER 2023-05-09 11:41 | Outpatient (AMB) | payer OTHER, SELFPAY ==
--- NOTE | 2023-05-09 11:53 | A.OFFPC_ITS ---
Vital Signs 05/09/23 11:56 Weight 186 lb BP 126/70 Blood Pressure Location Lt brachial Position Sitting Pulse 83 Pulse Source Pulse Oximeter Pulse Oximetry (%) 98 Oxygen Delivery Method Room Air Intake Visit Reasons: f/u onelia's Intake Note: Patient is here to follow up on Micheal mitchelley. Would like referral for PT. Allergies environmental allergies Allergy (Intermediate, Verified 05/09/23 11:58) Runny Nose erythromycin base Allergy (Unknown, Verified 05/09/23 11:58) Hives paclitaxel [From Taxol] Allergy (Unknown, Verified 05/09/23 11:58) Unknown Iodinated Contrast Media Allergy (Verified 05/09/23 11:58) Hives Tobacco use date assessed: 05/09/23 HPI f/u micheal HPI0 Details 52 y/o female presents to f/u Micheal wit h L facial weakness and difficulty closing L eye. Had referred her to ophthalmology. She is requesting referral to PT. Pt reports some mild dysuria. She denies any discharge. She denies any fevers/chills/back pain. [facility] Medical History No pertinent past medical history Surgical History History of reconstruction of both breasts History of mastectomy H/O laparoscopy History of oral surgery Family History Father Depression HTN (hypertension) CVD (cardiovascular disease) Mother Arrhythmia Anxiety Eating disorder Maternal Grandmother Lung cancer Maternal Grandfather Lupus Emphysema, unspecified Paternal Grandmother Anorexia Heart failure Paternal Grandfather Heart disease Parkinson disease Brother No problems noted. Sister No problems noted. Social History Housing: House Alcohol intake: never Patient Tobacco Use Status: Never used Tobacco e-Cigarette/Vaping Use: Never Used Second Hand Smoke Exposure: No service: No Current occupational status: unemployed Current occupational exposures/hazards: No Cognitive needs: No Hearing needs: No Vision needs: No Questionnaire PHQ-9 Over the last 2 weeks, how often have you been bothered by any of the following problems? 1. Little interest or pleasure in doing things: several days 2. Feeling down, depressed, or hopeless: several days 3. Trouble falling or staying asleep, or sleeping too much: nearly every day 4. Feeling tired or having little energy: several days 5. Poor appetite or overeating: several days 6. Feeling bad about yourself - or that you are a failure or have let yourself or your family down: not at all 7. Trouble concentrating on things, such as reading the newspaper or watching television: not at all 8. Moving or speaking so slowly that other people could have noticed. Or the opposite - being so fidgety or restless that you have been moving around a lot more than usual: not at all 9. Thoughts that you would be better off or of hurting yourself in some way: not at all Total score: 7 Depression Screening Interpretation: Positive Depression Screening Done: Yes Source: Developed by Drs. Jay Jay Mcintosh, Edyta Verduzco, Bryan Hensley and colleagues, with an educational kathi from [employer]. Thrive Questionnaire Date Thrive assessed: 05/09/23 I am a: Patient What is your living situation today?: I have a steady place to live Within the past 12 months, did the food you bought not last and you didn't have the money to get more?: Never true Within the past 12 months, did you worry whether your food would run out before you got money to buy more?: Never true Do you have trouble paying for medicines?: No Do you have trouble getting transportation to medical appointments?: No Do you have trouble paying your heating and electricity bill?: No Do you have trouble taking care of your child, family member or friend?: No Do you have trouble with day-to-day activities such as bathing, preparing meals, shopping, managing finances, etc.?: No Are you currently unemployed and looking for a job?: No Are you interested in more education?: No AUDIT C Alcohol Use Questionnaire (AUDIT-C) 1. How often do you have a drink containing alcohol?: Never 3. How often do you have six or more drinks on one occasion?: Never Total Score: 0 NOHEMI-7 AMB Questionnaire NOHEMI-7 Date NOHEMI - 7 assessed: 05/09/23 Feeling nervous, anxious, or on edge: 0 = Not at all Not being able to stop or control worryin = Several days Worrying too much about different things: 1 = Several days Trouble relaxin = Several days Being so restless that it is hard to sit still: 0 = Not at all Becoming easily annoyed or irritable: 0 = Not at all Feeling afraid as if something awful might happen: 1 = Several days Total NOHEMI-7 score (0-4 normal; 5-9 mild; 10-14 moderate; 15-21 severe): 4 Source: Developed by Drs. Jay Jay Mcintosh, Edyta Verduzco, Bryan Hensley and colleagues, with an educational kathi from [employer]. Review of Systems Const Denies chills, Denies fatigue, Denies fever(s), Denies headache(s) and Denies weakness ENT Denies dizziness and Denies headache(s) Card Denies dyspnea Resp Denies cough, Denies dyspnea, Denies wheezing and Denies other (shortness of breath) Musc Denies numbness and Denies tingling Neuro Denies dizziness, Denies headache(s), Denies numbness, Denies tingling and Denies weakness Psych Denies anxiety and Denies depression Endo Denies fatigue Aller/Immun Denies wheezing Physical exam (Primary Care) Vital Signs: Last Vital Signs Pulse 83 05/09/23 11:56 BP 126/70 05/09/23 11:56 Pulse Ox 98 05/09/23 11:56 Oxygen Delivery Method Room Air 05/09/23 11:56 Tobacco/Smoking Status: Tobacco use Status Tobacco use date assessed 05/09/23 05/09/23 12:00 Patient Tobacco Use Status Never used Tobacco 05/09/23 11:53 e-Cigarette/Vaping Use Never Used 05/09/23 11:53 PHQ-9: PHQ-9 Score PHQ-9: Total score 7 05/09/23 12:42 Depression Screening Interpretation: Positive Thrive Assessment: Date of Thrive Assessment Date Thrive assessed 05/09/23 05/09/23 12:07 Const General: well developed; No acute distress Nutritional Appearance: well nourished Orientation/consciousness: patient oriented x3 HENMT Head: Yes normocephalic and Yes atraumatic Eyes General: appearance normal, both eyes and all related structures Pupils: Equal, round and reactive pupils present EOM: EOMs intact bilaterally Resp Effort & Inspection: normal respiratory effort Neuro General: patient oriented x3 and gait normal Cranial nerves: Yes Equal, round and reactive pupils present Psych Affect: normal affect Assessment and Plan Assessment & Plan (1) Manning's palsy: Code(s): G51.0 - Manning's palsy Plan: Improving Will?refer?to?neuro?physical?therapy Continue?to?follow-up?with?ophthalmology (2) Dysuria: Code(s): R30.0 - Dysuria Plan: Pressure/dysuria?and?most?recent?urinalysis?is?suspicious?for?UTI Will?treat?with?amoxicillin Recheck?UA?and?culture?and?sensitivities Orders: Orders UA and rflx microscopic Today R30.0 - Dysuria, Z00.00 - Encounter for general adult medical examination without abnormal findings Urine Culture Today R30.0 - Dysuria PT Evaluation and Treatment Today G51.0 - Manning's palsy Medications: New amoxicillin 500 mg PO Q12H 10 tabs 0RF 5 days Coding Level of Care Code Est Pt Level 3 (53922) Diagnoses Manning's palsy G51.0 Dysuria R30.0
[2023-05-09 11:56] VITALS: BP 126/70; PULSE 83; O2SAT 98
== END 2023-05-09 13:02 | disposition home or self-care (01) ==
PROVIDERS: PCP Family Medicine; Visit Provider Family Medicine
DX: G51.0 Bell's palsy (principal); R30.0 Dysuria
CPT/HCPCS: 99213

== ENCOUNTER 2023-05-09 12:39 | Outpatient (REF) | payer OTHER, SELFPAY ==
[2023-05-09 18:19] LABS: Appearance Urine Clear; Color Urine Yellow; Glucose Urine UA Negative (Negative); Leukocyte Esterase Urine Negative (Negative); Nitrite Urine Negative (Negative); UMIC TRIGGER UA YES; Urine Blood Trace (Negative); Urine Ketones Negative (Negative); Urine Protein Negative (Neg-Trace)
[2023-05-09 18:23] LABS: Bacteria Urine None Seen (None Seen); Hyaline Casts Urine 0-2 /LPF (0-2); RBC Urine 0-2 /HPF (0-2); WBC Urine 0-5 /HPF (0-5)
== END 2023-05-09 12:40 | disposition home or self-care (01) ==
LOC: HO.LAB 12:39
PROVIDERS: Visit Provider Family Medicine
DX: R30.0 Dysuria (principal)
CPT/HCPCS: 81001; 87086

== ENCOUNTER 2023-09-18 14:04 | Outpatient (AMB) | payer OTHER, SELFPAY ==
[2023-09-18 14:06] VITALS: BP 116/62; PULSE 96; O2SAT 96; BMI 34.8
--- NOTE | 2023-09-18 14:06 | MHC.PC.OV ---
Vital Signs 09/18/23 14:06 Height 5 ft 2 in Weight 190 lb 8 oz BMI 34.8 BP 116/62 Blood Pressure Location Rt brachial Position Sitting Pulse 96 Pulse Source Pulse Oximeter Pulse Oximetry (%) 96 Oxygen Delivery Method Room Air Intake Visit Reasons: hand pain,fatigue,elev tsh Intake Note: Patient is here to follow nup on mir pain fatigue, and elevated thyroid levels. Allergies environmental allergies Allergy (Intermediate, Verified 09/18/23 14:09) Runny Nose erythromycin base Allergy (Unknown, Verified 09/18/23 14:09) Hives paclitaxel [From Taxol] Allergy (Unknown, Verified 09/18/23 14:09) Unknown Iodinated Contrast Media Allergy (Verified 09/18/23 14:09) Hives Medication List - Last Reconciled 09/18/23 by Elver Garnett MD acetaminophen 650 mg PO Q4H PRN amoxicillin 500 mg PO Q12H 5 days anastrozole 1 mg PO DAILY blood pressure monitor Automatic, Digital. Daily As directed, 999 days/Lifetime calcium citrate 250 mg PO DAILY cholecalciferol (vitamin D3) 2,000 units PO DAILY 30 days desvenlafaxine succinate ER 100 mg PO DAILY folic acid 0.4 mg PO DAILY gabapentin 300 mg PO BID 15 days hydrochlorothiazide 12.5 mg PO DAILY 90 days levocetirizine 5 mg PO DAILY mecobalamin (vitamin B12) 1,000 mcg PO DAILY 90 days melatonin 3 mg PO BEDTIME PRN tramadol 50 mg PO Q8H PRN 3 days turmeric mg PO Tobacco use date assessed: 09/18/23 Dental Screening Dental Screen Date: 09/18/23 Did you have a dental visit in the last 12 months?: No Did you have a dental problem in the last 6 months where you did not have access to dental care?: No Was dental information given to patient?: Patient declined HPI hand pain,fatigue,elev tsh HPI Details 52 y/o female presents today to f/u hand pain, fatigue, elevated TSH. Pt continues to f/u with [facility] for stage II invasive ductal carcinoma of L breast. Labs were drawn at [facility] 09/01/23. TSH level mildly elevated at 5.31 uIU/mL. Pt reports fatigue. Pt reports FHx of sleep apnea. She states she does wake up feeling refreshed but reports snoring. [facility] Medical History No pertinent past medical history Surgical History History of reconstruction of both breasts History of mastectomy H/O laparoscopy History of oral surgery Family History Father Depression HTN (hypertension) CVD (cardiovascular disease) Mother Arrhythmia Anxiety Eating disorder Maternal Grandmother Lung cancer Maternal Grandfather Lupus Emphysema, unspecified Paternal Grandmother Anorexia Heart failure Paternal Grandfather Heart disease Parkinson disease Brother No problems noted. Sister No problems noted. Social History Housing: House Alcohol intake: never Patient Tobacco Use Status: Never used Tobacco e-Cigarette/Vaping Use: Never Used Second Hand Smoke Exposure: No service: No Current occupational status: unemployed Current occupational exposures/hazards: No Cognitive needs: No Hearing needs: No Vision needs: No Questionnaire PHQ-9 Over the last 2 weeks, how often have you been bothered by any of the following problems? 1. Little interest or pleasure in doing things: more than half the days 2. Feeling down, depressed, or hopeless: several days 3. Trouble falling or staying asleep, or sleeping too much: nearly every day 4. Feeling tired or having little energy: nearly every day 5. Poor appetite or overeating: nearly every day 6. Feeling bad about yourself - or that you are a failure or have let yourself or your family down: more than half the days 7. Trouble concentrating on things, such as reading the newspaper or watching television: not at all 8. Moving or speaking so slowly that other people could have noticed. Or the opposite - being so fidgety or restless that you have been moving around a lot more than usual: not at all 9. Thoughts that you would be better off or of hurting yourself in some way: not at all (once) Total score: 14 Depression Screening Interpretation: Positive Depression Screening Done: Yes Source: Developed by Drs. Jay Jay Mcintosh, Edyta Verduzco, Bryan Hensley and colleagues, with an educational kathi from [employer]. Thrive Questionnaire Date Thrive assessed: 05/09/23 AUDIT C Alcohol Use Questionnaire (AUDIT-C) 1. How often do you have a drink containing alcohol?: Never 3. How often do you have six or more drinks on one occasion?: Never Total Score: 0 NOHEMI-7 AMB Questionnaire NOHEMI-7 Date NOHEMI - 7 assessed: 09/18/23 Feeling nervous, anxious, or on edge: 2 = More than half the days Not being able to stop or control worryin = More than half the days Worrying too much about different things: 3 = Nearly every day Trouble relaxin = Nearly every day Being so restless that it is hard to sit still: 0 = Not at all Becoming easily annoyed or irritable: 1 = Several days Feeling afraid as if something awful might happen: 2 = More than half the days Total NOHEMI-7 score (0-4 normal; 5-9 mild; 10-14 moderate; 15-21 severe): 13 Source: Developed by Drs. Jay Jay Mcintosh, Edyta Verduzco, Bryan Hensley and colleagues, with an educational kathi from [employer]. Physical exam (Primary Care) Vital Signs: Last Vital Signs Pulse 96 09/18/23 14:06 BP 116/62 09/18/23 14:06 Pulse Ox 96 09/18/23 14:06 Oxygen Delivery Method Room Air 09/18/23 14:06 BMI result Body Mass Index 34.8 Tobacco/Smoking Status: Tobacco use Status Tobacco use date assessed 09/18/23 09/18/23 14:11 Patient Tobacco Use Status Never used Tobacco 09/18/23 14:11 e-Cigarette/Vaping Use Never Used 09/18/23 14:11 PHQ-9: PHQ-9 Score PHQ-9: Total score 14 09/18/23 14:27 Depression Screening Interpretation: Positive Thrive Assessment: Date of Thrive Assessment Date Thrive assessed 05/09/23 09/18/23 14:11 Assessment and Plan Assessment & Plan (1) Invasive ductal carcinoma of breast, stage 2: Code(s): C50.919 - Malignant neoplasm of unspecified site of unspecified female breast Plan: [facility] Continues?anastrozole?which?was?stopped?due?to?hand?pain?which?did?not?resolve?so?she?has?resume?this?medication. Had?been?on?tamoxifen?which?was?stopped?due?to?elevated?liver?enzymes Follow-up?with?Hematology-Oncology?as?recommended (2) Elevated TSH: Code(s): R79.89 - Other specified abnormal findings of blood chemistry Plan: Elevated?TSH?level?but?T4?was?within?normal?limits.??Patient?notes?that?she?has?fatigue?and?this?may?be?contributing?though?we?need?to?repeat?her?levels She?also?has?significant?symptoms?of?sleep?apnea?so?thyroid?hormone?and?may?not?be?a?cause?for?fatigue. Will?review?with?her?at?next?visit (3) Hand pain: Code(s): M79.643 - Pain in unspecified hand Plan: Bilateral?hand?pain?and?trigger?finger?at?bilateral?4th?fingers Has?seen?hand?surgery?regarding?her?thumbs?in?the?past Referred?back?to?hand?surgeon?at?[facility] Check?x-rays Can?use?a?small?amount?of?ibuprofen,?a?small?amount?of?Tylenol?and?also?some?Aspercreme?with?lidocaine?which?she?will?drive?in?with?heat. (4) Sleep apnea: Code(s): G47.30 - Sleep apnea, unspecified Plan: Patient?has?known?apneic?events?and?un?restful?sleep?with?daytime?sleepiness. Family?members?with?sleep?apnea?as?well Referred?to?Sleep?Medicine Encouraged?her?to?only?sleep?on?her?side?while?awaiting?evaluation Orders: Orders Free T4 (Free Thyroxine) Today E03.9 - Hypothyroidism, unspecified Triiodothyronine T3 Total Today E03.9 - Hypothyroidism, unspecified Comprehensive Met. Panel Today I10 - Essential (primary) hypertension Thyroid Stimulating Hormone Today E03.9 - Hypothyroidism, unspecified XR hand LT min 3V Today M79.643 - Pain in unspecified hand XR hand RT min 3V Today M79.643 - Pain in unspecified hand Referrals Sleep Medicine Referral G47.30 - Sleep apnea, unspecified Hand Surgery Referral M79.643 - Pain in unspecified hand Coding Level of Care Code Est Pt Level 4 (51104) Diagnoses Invasive ductal carcinoma of breast, stage 2 C50.919 Elevated TSH R79.89 Hand pain M79.643 Sleep apnea G47.30
== END 2023-09-18 14:57 | disposition home or self-care (01) ==
PROVIDERS: PCP Family Medicine; Visit Provider Family Medicine
DX: C50.919 Malignant neoplasm of unspecified site of unspecified female breast (principal); R79.89 Other specified abnormal findings of blood chemistry; M79.643 Pain in unspecified hand; G47.30 Sleep apnea, unspecified
CPT/HCPCS: 99214

== ENCOUNTER 2023-10-14 16:55 | Outpatient (REF) | payer OTHER, SELFPAY ==
--- NOTE | ~2023-10-14 | XR_ITS ---
EXAM: X-RAYS BILATERAL HANDS CLINICAL INFORMATION: Pain and unspecified hand. COMPARISON: None TECHNIQUE: 3 views of each hand. FINDINGS: RIGHT HAND: A 5 mm cystic lucency in the body of the right scaphoid. Mild degenerative changes first carpometacarpal joint. No displaced fracture appreciated. Bone mineralization is normal. LEFT HAND: Mild degenerative changes first carpometacarpal joint. No displaced fracture appreciated. Bone mineralization is normal. XR/XR hand LT min 3V IMPRESSION: 1. A 5 mm cystic lucency in the body of the right scaphoid. 2. Mild degenerative changes in the bilateral first carpometacarpal joints. 3. Recommend follow up imaging in 10-14 days if fracture is suspected.
--- NOTE | ~2023-10-14 | XR_ITS ---
EXAM: X-RAYS BILATERAL HANDS CLINICAL INFORMATION: Pain and unspecified hand. COMPARISON: None TECHNIQUE: 3 views of each hand. FINDINGS: RIGHT HAND: A 5 mm cystic lucency in the body of the right scaphoid. Mild degenerative changes first carpometacarpal joint. No displaced fracture appreciated. Bone mineralization is normal. LEFT HAND: Mild degenerative changes first carpometacarpal joint. No displaced fracture appreciated. Bone mineralization is normal. XR/XR hand RT min 3V IMPRESSION: 1. A 5 mm cystic lucency in the body of the right scaphoid. 2. Mild degenerative changes in the bilateral first carpometacarpal joints. 3. Recommend follow up imaging in 10-14 days if fracture is suspected.
[2023-10-14 18:22] LABS: Alanine Aminotransferase 17 U/L (0-31); Albumin Level 4.5 g/dL (3.5-5.0); Alkaline Phosphatase 78 U/L (39-117); Anion Gap 13 (12-20); Aspartate Amino Transferase 20 U/L (5-31); Bilirubin Total 0.4 mg/dL (0.0-1.0); Blood Urea Nitrogen 18 mg/dL (9-16); Calcium 10.6 mg/dL (8.4-10.2); Carbon Dioxide 28 mmol/L (22-29); Chloride 103 mmol/L (96-108); Estimated Glomerular Filt Rate 59; Glucose Random 201 mg/dL (60-115); Potassium 3.8 mmol/L (3.3-5.1); Sodium 140 mmol/L (135-145); Total Protein 7.6 g/dL (6.5-8.0)
[2023-10-14 18:37] LABS: Free T4 (Free Thyroxine) 0.91 ng/dL (0.71-1.85); Thyroid Stimulating Hormone 1.64 uIU/mL (0.32-4.0)
[2023-10-16 07:54] LABS: Triiodothyronine T3 Total 98 ng/dL (76-181)
[2023-10-16 11:33] LABS: Thyroid Peroxidase Antibodies <1 IU/mL (<9)
== END 2023-10-14 16:56 | disposition home or self-care (01) ==
LOC: HO.XRAY 16:55
PROVIDERS: PCP Family Medicine; Visit Provider Family Medicine
DX: M79.641 Pain in right hand (principal); M79.642 Pain in left hand; E03.9 Hypothyroidism, unspecified; I10 Essential (primary) hypertension; R79.89 Other specified abnormal findings of blood chemistry
CPT/HCPCS: 36415; 73130; 80053; 84439; 84443; 84480; 86376

== ENCOUNTER 2024-03-12 09:49 | Outpatient (AMB) | payer OTHER, SELFPAY ==
--- NOTE | 2024-03-12 09:57 | MHC.PC.OV ---
Vital Signs 03/12/24 10:00 Height 5 ft 2 in Weight 178 lb 6 oz BMI 32.6 BP 120/80 Blood Pressure Location Rt brachial Position Sitting Respiration 12 Pulse 77 Pulse Source Pulse Oximeter Temp 97.9 F Temp Source Tympanic Pulse Oximetry (%) 97 Oxygen Delivery Method Room Air Intake Visit Reasons: F/U bloodwork/hand pain Intake Note: follow up for labs done in september due to appt reschedule and bilateral hand pain arthritis flare up Allergies environmental allergies Allergy (Intermediate, Verified 03/12/24 09:58) Runny Nose erythromycin base Allergy (Unknown, Verified 03/12/24 09:58) Hives paclitaxel [From Taxol] Allergy (Unknown, Verified 03/12/24 09:58) Unknown Iodinated Contrast Media Allergy (Verified 03/12/24 09:58) Hives Medication List - Last Reconciled 03/12/24 by Elver Garnett MD acetaminophen 650 mg PO Q4H PRN anastrozole 1 mg PO DAILY blood pressure monitor Automatic, Digital. Daily As directed, 999 days/Lifetime calcium citrate 250 mg PO DAILY cholecalciferol (vitamin D3) 2,000 units PO DAILY 30 days desvenlafaxine succinate ER 100 mg PO DAILY folic acid 0.4 mg PO DAILY hydrochlorothiazide 12.5 mg PO DAILY 90 days levocetirizine 5 mg PO DAILY turmeric mg PO Tobacco use date assessed: 09/18/23 Dental Screening Dental Screen Date: 09/18/23 HPI F/U bloodwork/hand pain HPI Details 53 y/o female presents to f/u labs, hand pain. Had referred her to sleep medicine. Referred her to hand surgery and ordered x-rays. Labs drawn 10/14/23. Reviewed labs with pt. TSH 1.64. Free T4 0.91. Total T3 98. B/L Hand pain & Xrays showed scaphoid lucency and otherwise degenerative changes. Had seen hand specialist in October and she notes they were unable to make any plans for her regarding her arthritis. Has complaints of headaches. Sleep medicine had been unable to reach pt for ? sleep apnea. [facility] Medical History No pertinent past medical history Surgical History History of reconstruction of both breasts History of mastectomy H/O laparoscopy History of oral surgery Family History Father Depression HTN (hypertension) CVD (cardiovascular disease) Mother Arrhythmia Anxiety Eating disorder Maternal Grandmother Lung cancer Maternal Grandfather Lupus Emphysema, unspecified Paternal Grandmother Anorexia Heart failure Paternal Grandfather Heart disease Parkinson disease Brother No problems noted. Sister No problems noted. Social History Housing: House Alcohol intake: never Patient Tobacco Use Status: Never used Tobacco e-Cigarette/Vaping Use: Never Used Second Hand Smoke Exposure: No service: No Current occupational status: unemployed Current occupational exposures/hazards: No Cognitive needs: No Hearing needs: No Vision needs: No Questionnaire Thrive Questionnaire Date Thrive assessed: 05/09/23 AUDIT C Alcohol Use Questionnaire (AUDIT-C) 3. How often do you have six or more drinks on one occasion?: Never Total Score: 0 NOHEMI-7 AMB Questionnaire NOHEMI-7 Date NOHEMI - 7 assessed: 09/18/23 Source: Developed by Drs. Jay Jay Mcintosh, Edyta Verduzco, Bryan Hensley and colleagues, with an educational kathi from [employer]. Review of Systems Const Denies fatigue and Reports headache(s) ENT Reports headache(s) Card Denies dyspnea Resp Denies cough, Denies dyspnea, Denies wheezing and Denies other (shortness of breath) Musc Denies numbness and Denies tingling Neuro Reports headache(s), Denies numbness and Denies tingling Psych Denies anxiety and Denies depression Endo Denies fatigue Aller/Immun Denies wheezing Physical exam (Primary Care) Vital Signs: Last Vital Signs Temp 97.9 F 03/12/24 10:00 Pulse 77 03/12/24 10:00 Resp 12 03/12/24 10:00 BP 120/80 03/12/24 10:00 Pulse Ox 97 03/12/24 10:00 Oxygen Delivery Method Room Air 03/12/24 10:00 BMI result Body Mass Index 32.6 Tobacco/Smoking Status: Tobacco use Status Tobacco use date assessed 09/18/23 03/12/24 10:04 Patient Tobacco Use Status Never used Tobacco 03/12/24 10:04 e-Cigarette/Vaping Use Never Used 03/12/24 10:04 Thrive Assessment: Date of Thrive Assessment Date Thrive assessed 05/09/23 03/12/24 10:04 Const General: well developed; No acute distress Nutritional Appearance: well nourished Orientation/consciousness: patient oriented x3 [facility] Head: Yes normocephalic and Yes atraumatic Eyes General: appearance normal, both eyes and all related structures Pupils: Equal, round and reactive pupils present EOM: EOMs intact bilaterally Resp Effort & Inspection: normal respiratory effort Auscultation: clear to auscultation bilaterally Cardio Rate: regular rate Rhythm: regular rhythm Heart sounds: S1 normal heart sound present, S2 normal heart sound present, no gallops, no murmurs and no rubs Neuro General: patient oriented x3 and gait normal Cranial nerves: Yes Equal, round and reactive pupils present Psych Affect: normal affect Assessment and Plan Assessment & Plan (1) Hand pain: Code(s): M79.643 - Pain in unspecified hand Plan: B/L Hand pain & Xrays showed scaphoid lucency and otherwise denegenerative changes. Patient was scheduled on 11/20/23 at 11:[address] Rios in [place]. (2) Sleep apnea: Code(s): G47.30 - Sleep apnea, unspecified Plan: Sleep?medicine?was?unable?to?reach?patient?so?referral?was?close She?would?like?to?pursue?this?again?so?I?will?send?a?new?referral (3) Elevated TSH: Code(s): R79.89 - Other specified abnormal findings of blood chemistry Plan: Thyroid?hormone?levels?were?within?normal?range (4) Invasive ductal carcinoma of breast, stage 2: Code(s): C50.919 - Malignant neoplasm of unspecified site of unspecified female breast Plan: Recent?MRI?at?[facility]?required?and?call?back?and?biopsy?at?right?breast. This?was?cystic?in?nature. Follow-up?with surgeon?as?recommended (5) Headache: Code(s): R51.9 - Headache, unspecified Plan: Headaches?and?tension?distribution?and?patient?has?neck?and?trapezius?muscle?tension?and?discomfort?as?well Start?physical?therapy (6) Cervicalgia: Code(s): M54.2 - Cervicalgia Plan: Start?physical?therapy Orders: Orders PT Evaluation and Treatment Today M54.2 - Cervicalgia, R51.9 - Headache, unspecified Referrals Sleep Medicine Referral G47.30 - Sleep apnea, unspecified Coding Level of Care Code Est Pt Level 4 (06971) Diagnoses Hand pain M79.643 Sleep apnea G47.30 Elevated TSH R79.89 Invasive ductal carcinoma of breast, stage 2 C50.919 Headache R51.9 Cervicalgia M54.2
[2024-03-12 10:00] VITALS: BP 120/80; PULSE 77; RESP 12; TEMP 36.6; O2SAT 97; BMI 32.6
== END 2024-03-12 10:45 | disposition home or self-care (01) ==
PROVIDERS: PCP Family Medicine; Visit Provider Family Medicine
DX: M79.643 Pain in unspecified hand (principal); G47.30 Sleep apnea, unspecified; R79.89 Other specified abnormal findings of blood chemistry; C50.919 Malignant neoplasm of unspecified site of unspecified female breast; R51.9 Headache, unspecified; M54.2 Cervicalgia
CPT/HCPCS: 99214

== ENCOUNTER 2024-09-21 15:37 | Outpatient (AMB) | payer OTHER, SELFPAY ==
[2024-09-21 16:22] VITALS: BP 120/82; PULSE 79; TEMP 36.7; O2SAT 98
--- NOTE | 2024-09-21 16:22 | AM.OFFWIN_ITS ---
Intake Vital Signs 09/21/24 16:22 Height 5 ft 2 in BP 120/82 Blood Pressure Location Lt brachial Position Sitting Pulse 79 Pulse Source Pulse Oximeter Temp 98.1 F Temp Source Oral Pulse Oximetry (%) 98 Oxygen Delivery Method Room Air Intake Visit Reasons: EP Pilar? Swollen lymph node swelling Patient Tobacco Use Status: Never used Tobacco Accompanied by: Self / Same As Patient Allergies environmental allergies Allergy (Intermediate, Verified 09/21/24 16:23) Runny Nose erythromycin base Allergy (Unknown, Verified 09/21/24 16:23) Hives paclitaxel [From Taxol] Allergy (Unknown, Verified 09/21/24 16:23) Unknown Iodinated Contrast Media Allergy (Verified 09/21/24 16:23) Hives Do you need a note to return to daycare/school/sports/work: No HPI HPI Comments History of Present Illness Details This is a 53-year-old female with a past medical history of unilateral left-sided breast cancer with lymph node involvement in June 2018 treated wit h mastectomy, chemotherapy and radiation, presenting for evaluation of vaginal discomfort that she has had for the past 1 month. Patient believes that she has a vaginal yeast infection because she states that her feet have also felt itchy. Patient is sexually active however denies having any new partners, vaginal discharge or dyspareunia. Patient is also concerned about a left supraclavicular lymph node that has been present for the past 1 week. Patient states that her oncologist, Dr. Del Toro at [facility] is aware and is ordering her a MRI for further evaluation. Patient denies having any fevers, chills, dysuria, urinary frequency, sore throat, cough, shortness of breath or chest pain. COUNT INCLUDES THE [facility] Medical History No pertinent past medical history Surgical History History of reconstruction of both breasts History of mastectomy H/O laparoscopy History of oral surgery Family History Father Depression HTN (hypertension) CVD (cardiovascular disease) Mother Arrhythmia Anxiety Eating disorder Maternal Grandmother Lung cancer Maternal Grandfather Lupus Emphysema, unspecified Paternal Grandmother Anorexia Heart failure Paternal Grandfather Heart disease Parkinson disease Brother No problems noted. Sister No problems noted. Social History Housing: House Alcohol intake: never Patient Tobacco Use Status: Never used Tobacco e-Cigarette/Vaping Use: Never Used Second Hand Smoke Exposure: No service: No Current occupational status: unemployed Current occupational exposures/hazards: No Cognitive needs: No Hearing needs: No Vision needs: No Review of Systems Const All systems reviewed & are unremarkable except as noted in HPI and below Denies chills, Denies fatigue, Denies fever(s) and Denies lethargy Eyes Reports no additional complaints ENT Reports no additional complaints Card Reports no additional complaints Resp Reports no additional complaints GI Reports no additional complaints Denies genital lesions, Denies dysuria, Denies pelvic pain, Denies vaginal discharge, Denies vaginal odor and Reports vaginal pruritus Musc Reports no additional complaints Skin/Breast Reports pruritus (feet bilaterally) Neuro Reports no additional complaints Psych Reports no additional complaints Endo Reports no additional complaints and Denies fatigue Logan/Lymph Reports no additional complaints Aller/Immun Reports no additional complaints Physical Exam Vital Signs: Last Vital Signs Temp 98.1 F 09/21/24 16:22 Pulse 79 09/21/24 16:22 BP 120/82 09/21/24 16:22 Pulse Ox 98 09/21/24 16:22 Oxygen Delivery Method Room Air 09/21/24 16:22 Const General: cooperative, healthy appearing, comfortable, no acute distress, well developed, alert, awake and Physically active Nutritional Appearance: overweight Orientation/consciousness: patient oriented x3 Limitations: no limitations Neck Neck: No lymphadenopathy (left supraclavicular adipose tissue; no discretely defined lesion noted) GI Inspection: Yes normal to inspection Palpation (GI): Soft to palpation, nontender and no guarding Other: Speculum exam is deferred. There is no overt vaginal discharge noted on external examination. Swab is obtained for BV panel including Pilar. General: Yes bladder normal to palpation External Female Exam: normal external appearance, normal appearance of the urethra, No erythema, No externally tender, No external swelling, No lesion and No urethral discharge Bimanual exam- vagina & uterus: bladder normal to palpation Skin Other: There is no erythema, scale, edema or other cutaneous lesions noted on the dorsal or plantar surfaces of the feet bilaterally. General skin exam: no rashes or lesions noted Lesions: no lesions Neuro General: patient oriented x3 Psych Appearance: grossly normal Mental Status: mental status grossly normal Insight: Good insight present (Psych) Judgement: Good judgement present (Psych) Results AMB Urinalysis, Automated UA Leukoctes 0 Nakul/uL Last Edit by Alessandro Melton CMA on 09/21/24 16:55 UA Nitrite Negative Last Edit by Alessandro Melton CMA on 09/21/24 16:55 UA Urobilinogen 0.2 mg/dL Last Edit by Alessandro Melton CMA on 09/21/24 16 :55 UA Protein 0 mg/dL Last Edit by Alessandro Melton CMA on 09/21/24 16:55 UA pH 8.0 Last Edit by Alessandro Melton, SHABANA on 09/21/24 16:55 UA Blood 0 Anant/uL Last Edit by Alessandro Melton CMA on 09/21/24 16:55 UA Specific [place] 1.015 Last Edit by Alessandro Melton CMA on 09/21/24 16:55 UA Ketone Negative Last Edit by Alessandro Melton CMA on 09/21/24 16:55 UA Bilirubin 0 mg/dL Last Edit by Alessandro Melton CMA on 09/21/24 16:55 UA Glucose 0 mg/dL Last Edit by Aelssandro Melton CMA on 09/21/24 16:55 Results Reviewed Results Reviewed: Urinalysis is reviewed. There is no evidence of bacterial cystitis. Assessment & Plan Assessment & Plan (1) Vaginitis: Comment: No overt vaginal discharge is appreciated on examination. Full speculum exami nation is deferred. 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 Bacterial vaginitis swab is obtained and results are pending. Code(s): N76.0 - Acute vaginitis Qualifiers: Chronicity: subacute Qualified Code(s): N76.1 - Subacute and chronic vaginitis Plan: No prescription provided today pending the results of BV panel. Patient will follow-up with her oncologist at [facility] for further evalaution of left supraclavicular lesion; no discrete node identified on examination. Orders: Orders AMB Urinalysis Automated Today Z13.9 - Encounter for screening, unspecified Bacterial Vaginosis Panel Today N76.0 - Acute vaginitis Coding Level of Care Code Est Pt Level 4 (68080) Diagnoses Subacute vaginitis N76.1 Chronicity: subacute Time Spent (min) 35
--- OUTSIDE RECORDS SUMMARY | 2024-09-21 19:24 | XMS_ITS | Clinical Summary ---
Author Organization [facility], Address [address] [place] [address] Phone Care Team Providers Care Boat Buffer Plastic Name Role Phone Unavailable Primary Care Provider Unavailabl e Allergies Active Allergy Reactions Criticality Noted Date Comments Erythromycin Other (see comments),Hives Medium 07/01/2017 Iodinated Contrast Media Hives Medium 07/01/2017 Isoflavones (Soy) Other (see comments) 08/06/19 20 Silver Rash Low 08/16/2019 Pt gets rash from tegaderm dressing Medications acetaminophen (TYLENOL 8 HOUR) 650 MG 8 hr tablet Take 1 tablet by mouth Active hydroCHLOROthia zide (HYDRODIURIL) 12.5 MG tablet Take 1 tablet by mouth 1 (one) time each day Active tamoxifen (NOLVADEX) 10 MG chemo tablet Take 10 mg by mouth 2 (two) times a day 0 Active Desvenlafaxine Succinate ER 25 MG tablet sustained-relea se 24 hour TK 1 T PO QD. 0 Active Acetaminophen-C affeine 500-65 MG tablet Take by mouth Active cetirizine-pseu doephedrine (ZyrTEC-D) 5-120 MG per 12 hr tablet Take 1 tablet by mouth Active methylPREDNISol one (MEDROL) 32 MG tablet TK 1 T PO 12 HOUR BEFORE CONTRAST MEDIA INJECTION. TK 1 T PO 2 HOURS BEFORE CONTRAST MEDIA INJECTION 0 Active 5-Methyltetrahy drofolate (METHYL FOLATE) powder Take 400 mcg by mouth daily Active Active Problems Problem Noted Date Diagnosed Date Lymphedema 08/16/2019 Overview (08/16/2019): Left arm Anxiety 08/06/2019 Depressive disorder 08/06/2019 Hypertensive disorder 08/06/2019 Optic neuritis 08/06/2019 Primary malignant neoplasm of breast 08/06/2019 Overview (03/30/2024): Replacing diagnoses that were inactivated after the 03/30/24 Regulatory Import Social History Tobacco Use Types Packs/Day Years Used Date Smoking Tobacco: Never Alcohol Use Standard Drinks/Week Comments No 0 (1 standard drink = 0.6 oz pur e alcohol) Comments Unknown Sex and Gender Information Value Date Recorded Sex Assigned at Not on file Legal Sex Female 4:32 PM EST Gender Identity Not on file Sexual Orientation Not on file Last Filed Vital Signs Vital Sign Reading Time Taken Comments Blood Pressure 126/91 08/16/2019 8:39 AM EST Pulse 82 08/16/2019 8:39 AM EST Temperature 36.6 ??C (97.9 ??F) 08/16/2019 8:39 AM ES T Respiratory Rate 16 08/16/2019 8:39 AM EST Oxygen Saturation 96% 08/16/2019 8:39 AM EST Inhaled Oxygen Concentration - - Weight 83.5 kg (184 lb) 08/16/2019 8:39 AM EST Height 157.5 cm (5' 2 ) 09/23/2018 12:00 PM EDT Body Mass Index 33.65 09/23/2018 12:00 PM EDT Plan of Treatment Health Maintenance Due Date Last Done Comments Breast Cancer Screening 1970 Pneumococcal Vaccine: Pediat rics (0 to 5 Years) and At-Risk Patients (6 to 64 Years) (1 of 2 - PCV) 12/20/1977 Hepatitis B Vaccine (1 of 3 - 19+ 3-dose series) 12/20 Colorectal Cancer Screening: Annual FOBT 12/20/2020 Colorectal Cancer Screening: Colonoscopy 12/20/2020 Colorectal Cancer Screening: Sigmoidoscopy 12/20/2020 Influenza Vaccine (#1) [address] [facility]
== END 2024-09-21 17:13 | disposition home or self-care (01) ==
PROVIDERS: PCP Family Medicine; Visit Provider Physician Assistant
DX: N76.1 Subacute and chronic vaginitis (principal); Z13.9 Encounter for screening, unspecified

== ENCOUNTER 2024-09-21 15:37 | Outpatient (REF) | payer OTHER, SELFPAY ==
[2024-09-22 13:06] LABS: Bacterial Vaginosis PCR NEGATIVE (Negative); Candida Group PCR NOT DETECTED (Not Detect); Candida glab krusei PCR NOT DETECTED (Not Detect); Trichomonas vaginalis PCR NOT DETECTED (Not Detect)
== END 2024-09-21 15:38 | disposition home or self-care (01) ==
LOC: HO.LNP 15:37
PROVIDERS: PCP Family Medicine; Visit Provider Physician Assistant
DX: N76.0 Acute vaginitis (principal)
CPT/HCPCS: 81003; 81515

== ENCOUNTER 2024-09-22 08:23 | Outpatient (REF) | payer OTHER, SELFPAY | END 2024-09-22 08:24 | disposition home or self-care (01) | LOC: HO.LAB 08:23 | PROVIDERS: Visit Provider Physician Assistant | DX: Z13.89 Encounter for screening for other disorder (principal) ==

== ENCOUNTER 2024-10-26 14:47 | Outpatient (REF) | payer OTHER, SELFPAY ==
[2024-10-26 15:02] LABS: MANUAL DIFF FLAG NO
[2024-10-26 15:26] LABS: Appearance Urine Clear; Color Urine Yellow; Glucose Urine UA Negative (Negative); Leukocyte Esterase Urine Trace (Negative); Nitrite Urine Negative (Negative); PH 5.5 (5.0-9.0); UMIC TRIGGER UACC YES; Urine Blood Negative (Negative); Urine Ketones Negative (Negative); Urine Protein Negative (Neg-Trace)
[2024-10-26 15:28] LABS: Basophils Percent Auto 0.5 % (0-2); Eosinophils Absolute Auto 0.2 X10*3/uL (0.0-0.4); Eosinophils Percent Auto 2.1 % (0-4); Hematocrit 40.8 % (37.0-47.0); Hemoglobin 13.8 g/dl (12.0-16.0); Imm Gran Abs Auto 0.04 X10*3/uL (0.00-0.03); Imm Gran Pct Auto 0.5 % (0.0-0.4); Lymphocytes Absolute Auto 2.7 X10*3/uL (1.2-4.9); Lymphocytes Percent Auto 33.3 % (20-40); Mean Corpuscular HGB Conc 33.8 g/dl (31.0-35.0); Mean Corpuscular Hemoglobin 30.8 pg (27.0-33.0); Mean Corpuscular Volume 91.1 fL (80.0-98.0); Mean Platelet Volume 9.5 fL (9.4-12.3); Monocytes Absolute Auto 0.5 X10*3/uL (0.1-1.2); Monocytes Percent Auto 5.9 % (2-11); Neutrophils Absolute Auto 4.6 x10*3/uL (2.0-8.3); Neutrophils Percent Auto 57.7 % (45-73); Platelet Count 307 X10*3/uL (160-400); Red Blood Count 4.48 X10*6/uL (4.20-5.50); Red Cell Distribution Width 13.1 % (11.0-16.0)
[2024-10-26 15:31] LABS: Bacteria Urine 1+ (None Seen); Hyaline Casts Urine 0-2 /LPF (0-2); RBC Urine 0-2 /HPF (0-2); WBC Urine 0-5 /HPF (0-5)
[2024-10-26 15:49] LABS: Microalbum/Creatinine Ratio Ur 7.1 ug/mg cr (<30)
[2024-10-26 16:01] LABS: Alanine Aminotransferase 19 U/L (0-31); Albumin Level 4.4 g/dL (3.5-5.0); Anion Gap 14 (12-20); Aspartate Amino Transferase 24 U/L (5-31); Bilirubin Total 0.3 mg/dL (0.0-1.0); Blood Urea Nitrogen 15 mg/dL (9-16); Calcium 9.9 mg/dL (8.4-10.2); Carbon Dioxide 27 mmol/L (22-29); Chloride 103 mmol/L (96-108); Cholesterol 251 mg/dL (<200); Estimated Glomerular Filt Rate > 60; Glucose Fasting 95 mg/dL (60-99); HDL Cholesterol 52 mg/dL (>40); LDL Cholesterol Calculated 159 mg/dL (<100); Sodium 140 mmol/L (135-145); Total Protein 7.6 g/dL (6.5-8.0); Triglycerides 201 mg/dL (<150)
[2024-10-26 16:08] LABS: Alkaline Phosphatase 73 U/L (39-117)
[2024-10-26 16:13] LABS: TSH reflex Free T4 1.75 uIU/mL (0.32-4.0)
--- OUTSIDE RECORDS SUMMARY | 2024-10-26 18:05 | XMS_ITS | Clinical Summary ---
Author Organization [facility], Address [address] [place] [address] Phone Care Team Providers Care Cane Packer Name Role Phone Unavailable Primary Care Provider [...] Last Done Comments Breast Cancer Screening 1970 Hepatitis B Vaccine (1 of 3 - 19+ 3-dose series) 12/20 Pneumococcal Vaccine: 50+ Years (1 of 2 - PCV) 991 Colorectal Cancer Screening: Annual FOBT 12/20/2020 Colorectal Cancer Screening: Colonoscopy 12/20/2020 Colorectal Cancer Screening: Sigmoidoscopy 12/20/2020 Influenza Vaccine (Season Ended) 2025 Insurance [facility]
== END 2024-10-26 14:48 | disposition home or self-care (01) ==
LOC: HO.LAB 14:47
PROVIDERS: PCP Family Medicine; Visit Provider Family Medicine
DX: Z00.00 Encounter for general adult medical examination without abnormal findings (principal); I10 Essential (primary) hypertension
CPT/HCPCS: 36415; 80053; 80061; 81001; 82043; 82570; 84443; 85025

== ENCOUNTER 2024-10-28 15:50 | Outpatient (AMB) | payer OTHER, SELFPAY ==
--- NOTE | 2024-10-28 15:54 | MHC.PC.OV ---
Vital Signs 10/28/24 16:02 Height 5 ft 2 in Weight 188 lb BMI 34.4 BP 124/74 Blood Pressure Location Rt brachial Position Sitting Pulse 104 H Pulse Source Pulse Oximeter Temp 98.1 F Temp Source Oral Pulse Oximetry (%) 99 Oxygen Delivery Method Room Air Intake Visit Reasons: CPE with f/u labs and health maint. Salvage Repairer Required: No Information Interpreted: clinical only Mail Carriers Supervisor: Offered and Declined Post menopausal: No Allergies environmental allergies Allergy (Intermediate, Verified 10/28/24 15:57) Runny Nose erythromycin base Allergy (Unknown, Verified 10/28/24 15:57) Hives paclitaxel [From Taxol] Allergy (Unknown, Verified 10/28/24 15:57) Unknown Iodinated Contrast Media Allergy (Verified 10/28/24 15:57) Hives Medication List - Last Reconciled 10/28/24 by Elver Garnett MD acetaminophen 650 mg PO Q4H PRN anastrozole 1 mg PO DAILY blood pressure monitor Automatic, Digital. Daily As directed, 999 days/Lifetime calcium citrate 250 mg PO DAILY cholecalciferol (vitamin D3) 2,000 units PO DAILY 30 days desvenlafaxine succinate ER 100 mg PO DAILY folic acid 0.4 mg PO DAILY hydrochlorothiazide 12.5 mg PO DAILY 90 days levocetirizine 5 mg PO DAILY lorazepam mg PO trazodone 50 - 150 mg PO BEDTIME PRN turmeric mg PO Tobacco use date assessed: 10/28/24 Dental Screening Dental Screen Date: 10/28/24 Did you have a dental visit in the last 12 months?: Yes Did you have a dental problem in the last 6 months where you did not have access to dental care?: No Was dental information given to patient?: No HPI CPE with f/u labs and health maint. HPI Details 53 y/o female presents for a CPE with f/u labs and health maintenance. Labs drawn 10/26/24. Reviewed labs with pt. Triglycerides 201. TC 251. LDL 159. HDL 52. Blood pressure today 124/74, 104p. She is on HCTZ 12.5mg daily. [facility] Medical History (Updated 10/28/24 @ 16:55 by Faustino Silveira) Vaginitis No pertinent past medical history Surgical History History of reconstruction of both breasts History of mastectomy H/O laparoscopy History of oral surgery Family History Father Depression HTN (hypertension) CVD (cardiovascular disease) Mother Arrhythmia Anxiety Eating disorder Maternal Grandmother Lung cancer Maternal Grandfather Lupus Emphysema, unspecified Paternal Grandmother Anorexia Heart failure Paternal Grandfather Heart disease Parkinson disease Brother No problems noted. Sister No problems noted. Social History Housing: House Alcohol intake: never Patient Tobacco Use Status: Never used Tobacco e-Cigarette/Vaping Use: Never Used Second Hand Smoke Exposure: No service: No Current occupational status: unemployed Current occupational exposures/hazards: No Cognitive needs: No Hearing needs: No Vision needs: No Questionnaire PHQ-9 Over the last 2 weeks, how often have you been bothered by any of the following problems? 1. Little interest or pleasure in doing things: several days 2. Feeling down, depressed, or hopeless: several days 3. Trouble falling or staying asleep, or sleeping too much: several days 4. Feeling tired or having little energy: several days 5. Poor appetite or overeating: several days 6. Feeling bad about yourself - or that you are a failure or have let yourself or your family down: several days 7. Trouble concentrating on things, such as reading the newspaper or watching television: not at all 8. Moving or speaking so slowly that other people could have noticed. Or the opposite - being so fidgety or restless that you have been moving around a lot more than usual: not at all 9. Thoughts that you would be better off or of hurting yourself in some way: not at all Total score: 6 Depression Screening Interpretation: Positive Depression Screening Follow-up: In treatment Depression Screening Done: Yes 29735 - PHQ-9 Billing: Yes Source: Developed by Drs. Jay Jay Mcintosh, Edyta Verduzco, Bryan Hensley and colleagues, with an educational kathi from [employer]. Thrive Questionnaire Date Thrive assessed: 10/28/24 I am a: Patient What is your living situation today?: I have a steady place to live Within the past 12 months, did the food you bought not last and you didn't have the money to get more?: Never true Within the past 12 months, did you worry whether your food would run out before you got money to buy more?: Never true Do you have trouble paying for medicines?: No Do you have trouble getting transportation to medical appointments?: No Do you have trouble paying your heating and electricity bill?: No Do you have trouble taking care of your child, family member or friend?: No Do you have trouble with day-to-day activities such as bathing, preparing meals, shopping, managing finances, etc.?: Yes Are you currently unemployed and looking for a job?: I choose not to answer this question Are you interested in more education?: No Please select the resources that you would like help with: None Currently or been in a relationship where the following occur: No concerns reported THRIVE Score: 0 AUDIT C Alcohol Use Questionnaire (AUDIT-C) 1. How often do you have a drink containing alcohol?: Never Total Score: 0 NOHEMI-7 AMB Questionnaire NOHEMI-7 Date NOHEMI - 7 assessed: 10/28/24 Feeling nervous, anxious, or on edge: 1 = Several days Not being able to stop or control worryin = Several days Worrying too much about different things: 2 = More than half the days Trouble relaxin = Several days Being so restless that it is hard to sit still: 0 = Not at all Becoming easily annoyed or irritable: 1 = Several days Feeling afraid as if something awful might happen: 1 = Several days Total NOHEMI-7 score (0-4 normal; 5-9 mild; 10-14 moderate; 15-21 severe): 7 Source: Developed by Drs. Jay Jay Mcintosh, Edyta Verduzco, Bryan Hensley and colleagues, with an educational kathi from [employer]. NOHEMI-7 Assessment Billing NOHEMI-7 Assessment Tool: NOHEMI-7 Assessment 53506 Review of Systems Const Denies chills, Denies fatigue, Denies fever(s), Denies headache(s) and Denies weakness Eyes Denies change in vision ENT Denies dizziness, Denies headache(s), Denies hearing loss, Denies nasal congestion, Denies sinus pain, Denies sinus pressure and Denies sore throat Card Denies chest pain, Denies lightheadedness, Denies dyspnea and Denies other (palpitations) Resp Denies cough, Denies dyspnea and Denies wheezing GI Denies abdominal pain, Denies melena, Denies hematochezia, Denies change in bowel habits, Denies dyspepsia and Denies nausea Denies hematuria and Denies dysuria Musc Denies abnormal gait, Denies myalgias, Denies arthralgias, Denies numbness and Denies tingling Skin/Breast Denies rash, Denies unusual bruising and Denies wounds Neuro Denies abnormal gait, Denies dizziness, Denies headache(s), Denies memory loss, Denies numbness, Denies Sensory deficit (Neuro), Denies tingling and Denies weakness Psych Denies anxiety, Denies depression and Denies memory loss Endo Denies cold intolerance, Denies fatigue, Denies heat intolerance, Denies polydipsia and Denies polyuria Logan/Lymph Denies easy bleeding and Denies easy bruising Aller/Immun Denies wheezing Physical exam (Primary Care) Vital Signs: Last Vital Signs Temp 98.1 F 10/28/24 16:02 Pulse 104 H 10/28/24 16:02 BP 124/74 10/28/24 16:02 Pulse Ox 99 10/28/24 16:02 Oxygen Delivery Method Room Air 10/28/24 16:02 BMI result Body Mass Index 34.4 Tobacco/Smoking Status: Tobacco use Status Tobacco use date assessed 10/28/24 10/28/24 16:08 Patient Tobacco Use Status Never used Tobacco 10/28/24 15:56 e-Cigarette/Vaping Use Never Used 10/28/24 15:56 PHQ-9: PHQ-9 Score PHQ-9: Total score 6 10/28/24 16:08 Depression Screening Interpretation: Positive Depression Screening Follow-up: In treatment Thrive Assessment: Date of Thrive Assessment Date Thrive assessed 10/28/24 10/28/24 16:08 Currently or been in a relationship where the following occur: No concerns reported Const General: no acute distress, well developed, alert and awake Nutritional Appearance: well nourished Orientation/consciousness: patient oriented x3 HENMT Head: Yes normocephalic and Yes atraumatic Ears: hearing grossly normal bilaterally and TM's normal bilaterally General nose exam: Normal external nose present and Normal nares present Mouth: Normal oral and palatal mucosa present and moist mucous membranes Teeth and gingiva: dentition normal Throat: Yes posterior oropharynx normal Eyes General: appearance normal, both eyes and all related structures Pupils: Equal, round and reactive pupils present and Pupil accommodation reflex normal EOM: EOMs intact bilaterally Neck Other: 3 cm mass at L base of neck, mobile, not matted or rufus Neck: Yes normal visual inspection, Yes no lymphadenopathy and Yes trachea midline Thyroid: Thyroid normal Carotids: no bruits Lymphatic: no lymphadenopathy noted Chest Chest palpation & inspection: normal inspection of the chest Resp Effort & Inspection: normal respiratory effort Auscultation: clear to auscultation bilaterally Cardio Rate: regular rate Rhythm: regular rhythm Heart sounds: S1 normal heart sound present, S2 normal heart sound present, no gallops, no murmurs and no rubs Bruits: no abdominal aortic bruits and no carotid bruits GI Palpation (GI): No Abdominal aortic bruit present, Soft to palpation, nontender, No hepatosplenomegaly present and No Rebound tenderness present Auscultation: normal bowel sounds General: Yes no CVA tenderness Back/Spine/Pelvis Back: no CVA tenderness Cervical Spine: cervical ROM normal and No Cervical spine tenderness Thoracic/Lumbar Spine: thoraco-lumbar ROM normal, No pain with thoraco-lumbar ROM, No thoracic spinal tenderness and No lumbar spinal tenderness Skin Lesions: no lesions Rashes: no rashes Trauma: no lacerations or abrasions Wounds: no wounds Nails: normal Neuro General: patient oriented x3 Cranial nerves: Yes Equal, round and reactive pupils present Cognition (Neuro): normal cognition Gait exam (Neuro): Normal gait present Motor exam (neuro): 5/5 motor strength present throughout Sensory Exam: No Sensory deficit (Neuro) Deep tendon reflexes (DTR's): Right patellar reflex intensity grade: 2+ and Left patellar reflex intensity grade: 2+ Extrem General: Yes normal to inspection and No edema Psych Appearance: grossly normal Affect: normal affect Attitude: cooperative Thought process: Normal thought process present Coding Level of Care Code Est Pt Level 3 (95507) Est Pt Prev Care 40-64y(32452) Diagnoses Adult general medical exam Z00.00 Essential hypertension I10 Breast cancer screening by mammogram Z12.31 Localized swelling, mass or lump of neck R22.1 Hyperlipidemia E78.5 Screening for cervical cancer Z12.4 Screening for colon cancer Z12.11 Additional Codes NOHEMI-7 Assessment Billing - NOHEMI-7 Assessment Tool: NOHEMI-7 Assessment 82854 ([id number]) PHQ-9 - 99542 - PHQ-9 Billing: Yes ([id number]) Assessment & Plan Assessment & Plan (1) Adult general medical exam: Code(s): Z00.00 - Encounter for general adult medical examination without abnormal findings Category: Medical Plan: 53-year-old?female?presents?for?physical?exam Encouraged?healthy?diet?with?active?lifestyle?and?plenty?of?exercise (2) Essential hypertension: Code(s): I10 - Essential (primary) hypertension Category: Medical Plan: Blood?pressure?is?controlled.??Goal?is?less?than?140/90 Continue?current?medication (3) Breast cancer screening by mammogram: Code(s): Z12.31 - Encounter for screening mammogram for malignant neoplasm of breast Category: Medical Plan: History?of?ductal?carcinoma?in?Situ Followed?by?[facility]?Hematology-Oncology?and?surgery?as?well?as?education paraprofessional Currently?stable (4) Localized swelling, mass or lump of neck: Code(s): R22.1 - Localized swelling, mass and lump, neck Category: Medical Plan: Patient?has?3?cm?mass?at?left?base?of?neck Mass?is?mobile,?not?matted?or?rufus Likely?lipoma Given?patient's?history?will?check?an?ultrasound (5) Hyperlipidemia: Code(s): E78.5 - Hyperlipidemia, unspecified Category: Medical Plan: LDL?cholesterol?is?too?high. She?will?work?on?a?diet?low?in?saturated?fats?and?cholesterol. Encouraged?weight?loss?and?exercise Will?recheck?in?a?few?months.??If?still?elevated,?we?discussed?that?we?should?consider?medication. (6) Screening for cervical cancer: Code(s): Z12.4 - Encounter for screening for malignant neoplasm of cervix Category: Medical Plan: Patient?is?followed?by?Dr.?Dardano Check?with?your?education paraprofessional?see?when?you?need?your?next?Pap?smear. (7) Screening for colon cancer: Code(s): Z12.11 - Encounter for screening for malignant neoplasm of colon Category: Medical Plan: Followed?by?[facility] gastroenterology Call?GI?to?see?when?you?are?due?for?your?next?colonoscopy. Orders: Orders US soft tiss head and/or neck Today R22.1 - Localized swelling, mass and lump, neck
[2024-10-28 16:02] VITALS: BP 124/74; PULSE 104; TEMP 36.7; O2SAT 99; BMI 34.4
--- OUTSIDE RECORDS SUMMARY | 2024-10-28 17:24 | XMS_ITS | Clinical Summary ---
Author Organization [facility], Address [address] [place] [address] Phone Care Team Providers Care Measurement Superintendent Name Role Phone Unavailable Primary Care Provider [...] 12/20/2020 Influenza Vaccine (Season Ended) 2025 Insurance [facility]
== END 2024-10-28 16:54 | disposition home or self-care (01) ==
LOC: HO.HMCFM 15:51
PROVIDERS: PCP Family Medicine; Visit Provider Family Medicine
DX: Z00.00 Encounter for general adult medical examination without abnormal findings (principal); I10 Essential (primary) hypertension; R22.1 Localized swelling, mass and lump, neck; E78.5 Hyperlipidemia, unspecified; Z12.31 Encounter for screening mammogram for malignant neoplasm of breast; Z12.11 Encounter for screening for malignant neoplasm of colon

== ENCOUNTER → 2024-10-28 15:50 | Outpatient (BNVA) | payer OTHER, SELFPAY | PROVIDERS: PCP Family Medicine; Visit Provider Family Medicine | DX: Z00.00 Encounter for general adult medical examination without abnormal findings (principal); I10 Essential (primary) hypertension; R22.1 Localized swelling, mass and lump, neck; E78.5 Hyperlipidemia, unspecified | CPT/HCPCS: 96127 ==

== ENCOUNTER 2024-12-23 14:16 | Outpatient (REF) | payer OTHER, SELFPAY ==
--- NOTE | ~2024-12-23 | US_ITS ---
EXAMINATION: US HEAD NECK SOFT TISSUE HISTORY: R22.1 - Localized swelling, mass and lump, neck COMPARISON: There are no prior studies available for comparison. FINDINGS: Sonographic examination of the left lower neck was performed for further evaluation of a palpable abnormality. There is a 1.0 x 1.2 x 0.4 cm normal-appearing lymph node corresponding to the palpable findings. No additional abnormality is seen. US/US soft tiss head and/or neck IMPRESSION: 1.0 x 1.2 x 0.4 cm normal-appearing lymph node in the left lower neck corresponding to the palpable findings. Electronically signed by: Jay Jay Nelson MD 12/23/2024 02:55 PM EDT
== END 2024-12-23 14:17 | disposition home or self-care (01) ==
LOC: HO.HMGCX 14:16
PROVIDERS: PCP Family Medicine; Visit Provider Family Medicine
DX: R22.1 Localized swelling, mass and lump, neck (principal)
CPT/HCPCS: 76536

== ENCOUNTER → 2024-12-23 14:23 | Outpatient (BNV) | payer OTHER, SELFPAY | PROVIDERS: PCP Family Medicine; Visit Provider Radiology Diagnostic Radiology | DX: R59.0 Localized enlarged lymph nodes (principal) | CPT/HCPCS: 76536 ==

== ENCOUNTER → 2024-12-29 12:37 | Outpatient (AMB) | payer OTHER, SELFPAY ==
--- OUTSIDE RECORDS SUMMARY | 2024-12-23 23:59 | XMS_ITS | Continuity of Care Document ---
Author Organization [facility] ter Address [address] [place] [id number]- Care Team Providers Care Grain Distributor Name Role Phone Tamir LAI, Elver Cabral Primary Care Physician [phone] [facility] Date(s): 09/10/24 - 12/23/[address] [address]- Attending Physician: Keyur Del Toro DO Admitting Physician: Keyur Del Toro DO Referring Physician: Keyur Del Toro DO Encounter Type: Pre-Outpt Allergies, Adverse Reactions, Alerts Substance Criticality Severity Reaction Reaction Severity Status erythromycin HIVES ITCHING Act declan Taxol itchy throat Active Contrast Dye Active Other Environmental Allergy seasonal Active Soy Products Local congestion Active Medications Anaprox-DS = 550 mg, By Mouth, 2 times a day, 0 Refills, Maintenance, 09/11/21 1:11:00 PM EDT, Partial fill upon patient request if the prescription is for a schedule II opioid drug. Start Date: 09/11/21 Status: Ordered Repeat number: 1 anastrozole 1 mg oral tablet 1 tablet, By Mouth, Daily, # 90 tablet, 2 Refills, Maintenance, 09/22/24 1:51:00 PM EDT, [facility], 157.48, cm, 08/26/24 15:15:00 EST, Height, 83.6, kg, 08/26/24 15:15:00 EST, Dry Weight Start Date: 09/22/24 Status: Ordered Quantity: 90.0 Unit: tablet Repeat number: 1 Calcium Citrate Tablet Refills 0, Maintenance, 09/01/23 12:06:00 PM EST, Partial fill upon patient request if the prescription is for a schedule II opioid drug. Start Date: 09/01/23 Status: Ordered Repeat number: 1 desvenlafaxine 100 mg oral tablet, extended release 1 tablet = 100 mg, By Mouth, Daily, # 30 tablet, 0 Refills, Maintenance, 10/04/22 11:50:00 AM EDT, ERTablet, Partial fill upon patient request if the prescription is for a schedule II opioid drug. Start Date: 10/04/22 Status: Ordered Quantity: 30.0 Unit: tablet Repeat number: 1 Excedrin Migraine By Mouth, Every 6 hours, 0 Refills, Maintenance, 02/22/20 11:14:00 AM EDT Start Date: 02/22/20 Status: Ordered Repeat number: 1 Folic Acid = 400 mcg, By Mouth, Daily in AM, 0 Refills, Maintenance, 07/20/20 12:16:00 PM EST, Partial fill upon patient request if the prescription is for a schedule II opioid drug. Start Date: 07/20/20 Status: Ordered Repeat number: 1 Hydrochlorothiazide = 12.5 mg, By Mouth, Daily in AM, 0 Refills, Maintenance, 08/17/18 11:03:25 AM EST Start Date: 08/17/18 Status: Ordered Repeat number: 1 levocetirizine 5 mg oral tablet 1 tablet = 5 mg, By Mouth, Daily at bedtime, 0 Refills, Maintenance, 06/27/21 3:04:00 PM EST, Partial fill upon patient request if the prescription is for a schedule II opioid drug. Start Date: 06/27/21 Status: Ordered Repeat number: 1 LORazepam 0.5 mg oral tablet 0 Refills, Maintenance, 09/01/23 11:10:00 AM EST, Partial fill upon patient request if the prescription is for a schedule II opioid drug. Start Date: 09/01/23 Status: Ordered Repeat number: 1 LORazepam 0.5 mg oral tablet 1 tablet = 0.5 mg, By Mouth, Every 8 hours, 0 Refills, Maintenance, 09/01/23 12:06:00 PM EST, Partialfill upon patient request if the prescription is for a schedule II opioid drug. Start Date: 09/01/23 Status: Ordered Repeat number: 1 LORazepam 1 mg oral tablet See Instructions, PRN as needed for anxiety, 1 tablet By Mouth 30 minutes preprocedure,, # 5 tablet, 0 Refills, Maintenance, 11/12/23 3:07:00 PM EDT, Tablet, [facility]/pharmacy #[id number], Partial fill upon patient request if the prescription is for a schedule II opioid drug., 157.48, cm, 09/30/23 10:17:00 EDT, Height, 86, kg, 09/01/23 10:17:00 EST, Dry Weight Start Date: 11/12/23 Status: Ordered Quantity: 5.0 Unit: tablet Repeat number: 1 LUE custom comptession sleeve CCL1 LUE custom comptession sleeve CCL1, See Instructions, # 2 each, Refills 0, Tot. Refills 0, Maintenance, diagnosis: lymphedema ICD-10 189.0, 04/13/21 4:33:00 PM EDT, Supply Start Date: 04/13/21 Status: Ordered Quantity: 2.0 Unit: each Repeat number: 1 Mastectomy Bra See Instructions, # 3 each, Refills 1, Tot. Refills 1, Maintenance, History of left breast cancer Left mastectomy Diagnosis: C50.912, 02/04/23 2:28:00 PM EDT, Supply Start Date: 02/04/23 Status: Ordered Quantity: 3.0 Unit: each Repeat number: 2 Mastectomy Prosthesis See Instructions, # 1 each, Refills 1, Tot. Refills 1, Maintenance, History of left breast cancer Left mastectomy Diagnosis: C50.912, 08/09/21 4:25:00 PM EST, Supply Start Date: 08/09/21 Status: Ordered Quantity: 1.0 Unit: each Repeat number: 2 melatonin 3 mg oral tablet 1 tablet = 3 mg, By Mouth, Daily at bedtime, PRN for insomnia, # 60 tablet, 0 Refills, Maintenance,05/03/20 2:58:00 PM EST, Tablet Start Date: 05/03/20 Status: Ordered Quantity: 60.0 Unit: tablet Repeat number: 1 Tylenol 325 mg oral capsule 2 capsule = 650 mg, By Mouth, Every 4 hours, PRN as needed for pain, # 20 capsule, 0 Refills, Maintenance, 10/18/20 11:28:00 AM EDT, Capsule, Partial fill upon patient request if the prescription is for a schedule II opioid drug. Start Date: 10/18/20 Status: Ordered Quantity: 20.0 Unit: capsule Repeat number: 1 Vitamin D3 = 4,000 units, By Mouth, Daily, 0 Refills, Maintenance, 07/20/20 12:16:00 PM EST, Partial fill upon patient request if the prescription is for a schedule II opioid drug. Start Date: 07/20/20 Status: Ordered Repeat number: 1 Vitamin D3 2000 intl units oral tablet 1 tablet = 50 mcg, By Mouth, Daily, 0 Refills, Maintenance, 09/01/23 12:05:00 PM EST, Partial fill upon patient request if the prescription is for a schedule II opioid drug. Start Date: 09/01/23 Status: Ordered Repeat number: 1 Zinc = 140 mg, By Mouth, Daily, 0 Refills, Maintenance, 08/23/21 10:09:00 AM EST, Partial fill upon patient request if the prescription is for a schedule II opioid drug. 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 Active Acquired absence of left breast Confirmed Active Anxiety Confirmed Active Depression Confirmed Active Left axillary fullness Confirmed Active H/O optic neuritis Confirmed Active History of fainting spells of unknown cause Confirmed Active Hypertension Confirmed Active Acquired lymphedema Confirmed Active Breast cancer, left breast Confirmed Active Abnormal mammogram of right breast Confirmed Active Obese class I Confirmed Active Malignant neoplasm of overlapping sites of left breast in female, estrogen receptor positive Confirmed Active Social History Social History Type Response Smoking Status Never (less than 100 in lifetime) entered on: 07/17/18 Sex Sex Representation Female (finding) Implantable Device List Procedure Provider Procedure Date Device Type Site Reconstruction Breast First Stage Dustin Donovan MD, Mariusz Cabral 08/24/18 Unknown Breast Left Device Identifier Serial Number Lot or Batch Number Manufacturing Date Expiration Date Distinct Identification Code MRI Safety Implantable Status Assigning Authority Unknown [id number] Unknown 04/29/23 Unknown Unknown Active Unknown Patient Care team information Care Team Personnel Name: Keila Dillon Position: S Onco RN Member Role: Primary Care Nurse Name: Iqra Avila RN Position: S RN Member Role: Primary Care Nurse Name: Meaghan Camacho RN Position: [facility] Onco RN Member Role: Primary Care Nurse Name: Victoria Hussein MA Position: [facility] Legal Coordinator Coordinator Member Role: Primary Care Nurse Name: Elver Garnett MD Position: [facility] Outreach Member Role: PCP Address: [address] [place] [address] Telecom: Name: Dillan Guillaume RN Position: [facility] RN Supv Member Role: Primary Care Nurse Name: Vee Mazariegos RN Position: [facility] Onco RN Member Role: Primary Care Nurse Name: Aneta Lima RN Position: [facility] RN Supv Member Role: Primary Care Nurse Care Team Related Persons Name: MAYLIN HE Insurance Providers Guarantor name: [facility] Information #: 1 Payer: [facility] H[facility] Payer Identifier: ANGEL Member Number: [id number] Group Number: [id number] Subscriber Identifier: [id number] Relationship to Subscriber: spouse Coverage Type: Commercial Managed Care - HMO Coverage Verification Date: Telecom: NA Address:
--- NOTE | 2024-12-29 12:33 | A.OFFPC_ITS ---
Intake Visit Reasons: f/u ultrasound via telemed Intake Note: patient is scheduled to review ultrasound results Fire Hazard Inspector Required: No Allergies environmental allergies Allergy (Intermediate, Verified 12/29/24 12:34) Runny Nose erythromycin base Allergy (Unknown, Verified 12/29/24 12:34) Hives paclitaxel (From Taxol) Allergy (Unknown, Verified 12/29/24 12:34) Unknown Iodinated Contrast Media Allergy (Verified 12/29/24 12:34) Hives Tobacco use date assessed: 10/28/24 Dental Screening Dental Screen Date: 10/28/24 HPI f/u ultrasound via telemed HPI Details Patient?presents?by?telemedicine?to?follow-up?on?ultrasound?for?mass?at?left ?base?of?neck. Ultrasound?showed?a?lymph?node?corresponding?to?palpable?lump. Patient?has?not?noticed?any?enlargement. Otherwise?feels?well.??No?new?complaints. [facility] Medical History (Updated 10/28/24 @ 16:55 by Faustino Silveira) Vaginitis No pertinent past medical history Surgical History History of reconstruction of both breasts History of mastectomy H/O laparoscopy History of oral surgery Family History Father Depression HTN (hypertension) CVD (cardiovascular disease) Mother Arrhythmia Anxiety Eating disorder Maternal Grandmother Lung cancer Maternal Grandfather Lupus Emphysema, unspecified Paternal Grandmother Anorexia Heart failure Paternal Grandfather Heart disease Parkinson disease Brother No problems noted. Sister No problems noted. Social History Housing: House Alcohol intake: never Patient Tobacco Use Status: Never used Tobacco e-Cigarette/Vaping Use: Never Used Second Hand Smoke Exposure: No service: No Current occupational status: unemployed Current occupational exposures/hazards: No Cognitive needs: No Hearing needs: No Vision needs: No Questionnaire Thrive Questionnaire Date Thrive assessed: 10/28/24 NOHEMI-7 AMB Questionnaire NOHEMI-7 Date NOHEMI - 7 assessed: 10/28/24 Source: Developed by Drs. Jay Jay Mcintosh, Edyta B.Bryan Munroe and colleagues, with an educational kathi from [employer]. Review of Systems Const Denies chills, Denies fatigue, Denies fever(s), Denies headache(s) and Denies weakness ENT Denies dizziness and Denies headache(s) Card Denies chest pain, Denies lightheadedness, Denies dyspnea and Denies other (Palpitations) Resp Denies cough, Denies dyspnea, Denies wheezing and Denies other ( shortness of breath) Musc Denies numbness and Denies tingling Neuro Denies dizziness, Denies headache(s), Denies numbness, Denies tingling, Denies paresthesias and Denies weakness Psych Denies anxiety and Denies depression Endo Denies fatigue Aller/Immun Denies wheezing Physical exam (Primary Care) Tobacco/Smoking Status: Tobacco use Status Tobacco use date assessed 10/28/24 12/29/24 12:35 Patient Tobacco Use Status Never used Tobacco 12/29/24 12:35 e-Cigarette/Vaping Use Never Used 12/29/24 12:35 Thrive Assessment: Date of Thrive Assessment Date Thrive assessed 10/28/24 12/29/24 12:35 Telehealth Telehealth Telehealth Platform: Telephone Location of provider rendering services: practice address Location of patient: address on file Patient Identification confirmed using: Name, : Yes Telehealth method: voice only Patient verbally consented to treatment: Yes Patient verbally consented to billing insurance company: Yes Patient informed of any privacy concerns related to visit: Yes Minutes spent on Phone/Video with Pt.: 8 Coding Level of Care Code Tele Est Pt Level 2 (36993) Diagnoses Localized swelling, mass or lump of neck R22.1 Assessment & Plan Assessment & Plan (1) Localized swelling, mass or lump of neck: Code(s): R22.1 - Localized swelling, mass and lump, neck Category: Medical Plan: Head?and?neck?ultrasound?showed: 1.0 x 1.2 x 0.4 cm normal-appearing lymph node in the left lower neck corresponding to the palpable findings. No?need?for?follow-up?unless?she?notes?any?signif icant?increase?in?size?or?other?concerning?changes Orders: Orders Vitamin D 25-OH Total Today E55.9 - Vitamin D deficiency, unspecified Comprehensive [place]. Panel Fast Today Z00.00 - Encounter for general adult medical examination without abnormal findings Lipid Panel Today Z00.00 - Encounter for general adult medical examination without abnormal findings Microalbumin, Random (w Creat) Today I10 - Essential (primary) hypertension UA CC w/rflx Micro + Cult Today I10 - Essential (primary) hypertension, Z00.00 - Encounter for general adult medical examination without abnormal findings
--- OUTSIDE RECORDS SUMMARY | 2024-12-29 13:07 | XMS_ITS | Clinical Summary ---
Author Organization [facility], Address [address] [place] [address] Phone Care Team Providers Care Stock Replenisher Name Role Phone Unavailable Primary Care Provider [...] 82 08/16/2019 8:39 AM EST Temperature 36.6 C (97.9 F) 08/16/2019 8:39 AM EST Respiratory Rate 16 08/16/2019 8:39 AM EST [...] 12/20/2020 Influenza Vaccine (Season Ended) [address] [place] [address]
== END ==
LOC: HO.HMCFM 12:37
PROVIDERS: PCP Family Medicine; Visit Provider Family Medicine
DX: R22.1 Localized swelling, mass and lump, neck (principal)

== ENCOUNTER 2025-02-02 14:46 | Outpatient (REF) | payer OTHER, SELFPAY ==
--- OUTSIDE RECORDS SUMMARY | 2025-02-02 15:13 | XMS_ITS | Encounter Summary ---
Author Organization [facility] Address [address] [place] [address] Phone Care Team Providers Care Passementerie Worker Name Role Phone Radha Arce MD, MPH Primary Care Provid er Self-Referred, Patient Unavailable Unavailab le Self-Referred, Patient Unavailable Unavailab Lola Kim MD Unavailable [phone] Alaina Landaverde MD Unavailable [phone] Sadia Cardona DO Unavailable Elver Garnett MD Primary Care Provider Encounter Details Date Type Department Care Team (Late st Contact Info) Description 09/25/2018 Procedure Pass DF IMG OUTSIDE IMG [address] [place] [address] Social History Tobacco Use Types Packs/Day Years Used Date Smoking Tobacco: Never Assessed Comments Unknown Sex and Gender Information Value Date Recorded Sex Assigned at Female 11/08/2021 11:46 PM EDT Legal Sex Female 4:59 PM EST Gender Identity Female 11/08/2021 11:46 PM EDT Sexual Orientation Straight 11/08/2021 11 :46 PM EDT documented as of this encounter Plan of Treatment Not on file documented as of this encounter Visit Diagnoses Not on filedocumented in this encounter Care Teams Passementerie Worker Relationship Specialty Start Date End Date Radha Arce MD, MPH [address] [place] [address] PCP - General Family Medicine 09/07/18 02/04/21 Elver Garnett MD [address] [place] [address] PCP - General 02/05/21 Self-Referred, Patient Referring Physician 09/07/18 Self-Referred, Patient 09/17/18 Lola Foster MD [address] [place] [id number] [email or web address] Medical Oncology 09/25/18 Alaina Landaverde MD [address] [place] [address] Medical Oncology 09/25/18 Sadia Cardona DO [address] [place] [phone] Surgical Oncology 09/25/18 documented as of this encounter Additional Source Comments The information contained in this document represents components of the legal health record. It is not the complete legal health record.[facility]
--- OUTSIDE RECORDS SUMMARY | 2025-02-02 15:13 | XMS_ITS | Clinical Summary ---
Author Organization [facility], Address [address] [place] [address] Phone Care Team Providers Care Street Sweeper Name Role Phone Unavailable Primary Care Provider [...] Cancer Screening: Sigmoidoscopy 12/20/2020 Influenza Vaccine (#1) 2025 Insurance [facility]
[2025-02-02 16:15] LABS: Appearance Urine Clear; Glucose Urine UA Negative (Negative); PH 5.5 (5.0-9.0); Specific Gravity - Urine 1.015 (1.005-1.025); UMIC TRIGGER UACC YES
[2025-02-02 16:19] LABS: UACC Culture Trigger YES
[2025-02-02 16:30] LABS: Alanine Aminotransferase 17 U/L (0-31); Albumin Level 4.7 g/dL (3.5-5.0); Alkaline Phosphatase 73 U/L (39-117); Anion Gap 13 (12-20); Aspartate Amino Transferase 33 U/L (5-31); Blood Urea Nitrogen 15 mg/dL (9-16); Calcium 9.9 mg/dL (8.4-10.2); Carbon Dioxide 25 mmol/L (22-29); Chloride 106 mmol/L (96-108); Cholesterol 219 mg/dL (<200); Estimated Glomerular Filt Rate 55; HDL Cholesterol 49 mg/dL (>40); Potassium 4.4 mmol/L (3.3-5.1); Sodium 140 mmol/L (135-145); Total Protein 7.9 g/dL (6.5-8.0); Triglycerides 194 mg/dL (<150)
[2025-02-02 17:47] LABS: Microalbum/Creatinine Ratio Ur 5.3 ug/mg cr (<30)
== END 2025-02-02 14:47 | disposition home or self-care (01) ==
LOC: HO.LAB 14:46
PROVIDERS: PCP Family Medicine; Visit Provider Family Medicine
DX: Z00.00 Encounter for general adult medical examination without abnormal findings (principal); I10 Essential (primary) hypertension; E55.9 Vitamin D deficiency, unspecified
CPT/HCPCS: 36415; 80053; 80061; 81001; 81003; 82043; 82306; 82570; 87086

== ENCOUNTER 2025-02-10 13:37 | Outpatient (AMB) | payer OTHER, SELFPAY ==
[2025-02-10 13:42] VITALS: BP 122/70; PULSE 106; RESP 18; TEMP 36.7; O2SAT 97; BMI 33.3
--- NOTE | 2025-02-10 13:42 | A.OFFPC_ITS ---
Vital Signs 02/10/25 13:42 Height 5 ft 2 in Weight 182 lb 2 oz BMI 33.3 BP 122/70 Blood Pressure Location Rt brachial Position Sitting Respiration 18 Pulse 106 H Pulse Source Pulse Oximeter Temp 98.0 F Temp Source Oral Pulse Oximetry (%) 97 Oxygen Delivery Method Room Air Intake Visit Reasons: f/u HTN, chronic conditions Allergies environmental allergies Allergy (Intermediate, Verified 02/10/25 13:45) Runny Nose erythromycin base Allergy (Unknown, Verified 02/10/25 13:45) Hives paclitaxel (From Taxol) Allergy (Unknown, Verified 02/10/25 13:45) Unknown Iodinated Contrast Media Allergy (Verified 02/10/25 13:45) Hives Medication List - Last Reconciled 02/10/25 by Elver Garnett MD acetaminophen 650 mg PO Q4H PRN anastrozole 1 mg PO DAILY blood pressure monitor Automatic, Digital. Daily As directed, 999 days/Lifetime calcium citrate 250 mg PO DAILY cholecalciferol (vitamin D3) 2,000 units PO DAILY 30 days desvenlafaxine succinate ER 100 mg PO DAILY folic acid 0.4 mg PO DAILY hydrochlorothiazide 12.5 mg PO DAILY 90 days levocetirizine 5 mg PO DAILY lorazepam mg PO trazodone 50 - 150 mg PO BEDTIME PRN turmeric mg PO Tobacco use date assessed: 02/10/25 Dental Screening Dental Screen Date: 02/10/25 Did you have a dental visit in the last 12 months?: Yes Did you have a dental problem in the last 6 months where you did not have access to dental care?: No Was dental information given to patient?: Patient has dentist HPI f/u HTN, chronic conditions HPI Details 54 y/o female presents to f/u HTN, lipid s. Blood pressure today 122/70, 106p. She is on hydrochlorothiazide 12.5mg daily. Labs drawn 02/02/25. Reviewed labs with pt. Triglycerides 194. TC 219. LDL 132. HDL 49. Vitamin D 65.3. PFSH Medical History Vaginitis No pertinent past medical history Surgical History History of reconstruction of both breasts History of mastectomy H/O laparoscopy History of oral surgery Family History Father Depression HTN (hypertension) CVD (cardiovascular disease) Mother Arrhythmia Anxiety Eating disorder Maternal Grandmother Lung cancer Maternal Grandfather Lupus Emphysema, unspecified Paternal Grandmother Anorexia Heart failure Paternal Grandfather Heart disease Parkinson disease Brother No problems noted. Sister No problems noted. Social History Housing: House Alcohol intake: never Patient Tobacco Use Status: Never used Tobacco e-Cigarette/Vaping Use: Never Used Second Hand Smoke Exposure: No service: No Current occupational status: unemployed Current occupational exposures/hazards: No Cognitive needs: No Hearing needs: No Vision needs: No Questionnaire PHQ-9 Over the last 2 weeks, how often have you been bothered by any of the following problems? 1. Little interest or pleasure in doing things: several days 2. Feeling down, depressed, or hopeless: several days 3. Trouble falling or staying asleep, or sleeping too much: nearly every day 4. Feeling tired or having little energy: nearly every day 5. Poor appetite or overeating: more than half the days 6. Feeling bad about yourself - or that you are a failure or have let yourself or your family down: several days 7. Trouble concentrating on things, such as reading the newspaper or watching television: not at all 8. Moving or speaking so slowly that other people could have noticed. Or the opposite - being so fidgety or restless that you have been moving around a lot more than usual: not at all 9. Thoughts that you would be better off or of hurting yourself in some way: not at all Total score: 11 Depression Screening Interpretation: Positive Depression Screening Done: Yes 53229 - PHQ-9 Billing: Yes Source: Developed by Drs. Jay Jay Mcintosh, Edyta Verduzco, Bryan Hensley and colleagues, with an educational kathi from [employer]. Thrive Questionnaire Date Thrive assessed: 10/26/24 I am a: Patient What is your living situation today?: I have a steady place to live Within the past 12 months, did the food you bought not last and you didn't have the money to get more?: Never true Within the past 12 months, did you worry whether your food would run out before you got money to buy more?: Never true Do you have trouble paying for medicines?: No Do you have trouble getting transportation to medical appointments?: No Do you have trouble paying your heating and electricity bill?: No Do you have trouble taking care of your child, family member or friend?: No Do you have trouble with day-to-day activities such as bathing, preparing meals, shopping, managing finances, etc.?: No Are you currently unemployed and looking for a job?: I choose not to answer this question Are you interested in more education?: No Please select the resources that you would like help with: None Currently or been in a relationship where the following occur: No concerns reported THRIVE Score: 0 AUDIT C Alcohol Use Questionnaire (AUDIT-C) 1. How often do you have a drink containing alcohol?: Never 3. How often do you have six or more drinks on one occasion?: Never Total Score: 0 NOHEMI-7 AMB Questionnaire NOHEMI-7 Date NOHEMI - 7 assessed: 10/28/24 Feeling nervous, anxious, or on edge: 1 = Several days Not being able to stop or control worryin = Several days Worrying too much about different things: 2 = More than half the days Trouble relaxin = Several days Being so restless that it is hard to sit still: 0 = Not at all Becoming easily annoyed or irritable: 1 = Several days Feeling afraid as if something awful might happen: 1 = Several days Total NOHEMI-7 score (0-4 normal; 5-9 mild; 10-14 moderate; 15-21 severe): 7 Source: Developed by Drs. Jay Jay Mcintosh, Edyta Verduzco, Bryan Hensley and colleagues, with an educational kathi from [employer]. NOHEMI-7 Assessment Billing NOHEMI-7 Assessment Tool: NOHEMI-7 Assessment 16947 Review of Systems Const Denies chills, Denies fatigue, Denies fever(s), Denies headache(s) and Denies weakness ENT Denies dizziness and Denies headache(s) Card Denies dyspnea Resp Denies cough, Denies dyspnea, Denies wheezing and Denies other (shortness of breath) Musc Denies numbness and Denies tingling Neuro Denies dizziness, Denies headache(s), Denies numbness, Denies tingling and Denies weakness Psych Denies anxiety and Denies depression Endo Denies fatigue Aller/Immun Denies wheezing Physical exam (Primary Care) Vital Signs: Last Vital Signs Temp 98.0 F 02/10/25 13:42 Pulse 106 H 02/10/25 13:42 Resp 18 02/10/25 13:42 BP 122/70 02/10/25 13:42 Pulse Ox 97 02/10/25 13:42 Oxygen Delivery Method Room Air 02/10/25 13:42 BMI result Body Mass Index 33.3 Tobacco/Smoking Status: Tobacco use Status Tobacco use date assessed 02/10/25 02/10/25 13:47 Patient Tobacco Use Status Never used Tobacco 02/10/25 13:47 e-Cigarette/Vaping Use Never Used 02/10/25 13:47 PHQ-9: PHQ-9 Score PHQ-9: Total score 11 02/10/25 13:53 Depression Screening Interpretation: Positive Thrive Assessment: Date of Thrive Assessment Date Thrive assessed 10/26/24 02/10/25 13:47 Currently or been in a relationship where the following occur: No concerns reported Const General: well developed; No acute distress Nutritional Appearance: well nourished Orientation/consciousness: patient oriented x3 HENMT Head: Yes normocephalic and Yes atraumatic Eyes General: appearance normal, both eyes and all related structures Pupils: Equal, round and reactive pupils present EOM: EOMs intact bilaterally Resp Effort & Inspection: normal respiratory effort Auscultation: clear to auscultation bilaterally Cardio Rate: regular rate Rhythm: regular rhythm Heart sounds: S1 normal heart sound present, S2 normal heart sound present, no gallops, no murmurs and no rubs Neuro General: patient oriented x3 and gait normal Cranial nerves: Yes Equal, round and reactive pupils present Psych Affect: normal affect Coding Level of Care Code Est Pt Level 4 (57271) Diagnoses Essential hypertension I10 Hyperlipidemia E78.5 Elevated liver enzymes R74.8 Additional Codes NOHEMI-7 Assessment Billing - NOHEMI-7 Assessment Tool: NOHEMI-7 Assessment 94067 ([id number]) PHQ-9 - 06548 - PHQ-9 Billing: Yes ([id number]) Assessment & Plan Assessment & Plan (1) Essential hypertension: Code(s): I10 - Essential (primary) hypertension Category: Medical (2) Hyperlipidemia: Code(s): E78.5 - Hyperlipidemia, unspecified Category: Medical (3) Elevated liver enzymes: Code(s): R74.8 - Abnormal levels of other serum enzymes Category: Medical Plan Blood pressure is controlled on hydrochlorothiazide. Goal is less than 140/90 Will continue hydrochlorothiazide for now. However, EGFR slightly lower with most recent measurement. Mild tachycardia as well and mild elevation in AST. May be somewhat dehydrated Encouraged her to increase fluid intake Will recheck prior to next visit. If GFR decreases further, would stop hydrochlorothiazide and use another antihypertensive medication. Lipids continue to improve. Briefly discussed Zeprieto in today She wants to keep working at a diet lower in saturated fats and cholesterol. We will recheck lipids prior to next visit Vitamin-D level is good Continue current medication Orders: Orders Comprehensive [place]. Panel Fast Today E78.5 - Hyperlipidemia, unspecified, Z00.00 - Encounter for general adult medical examination without abnormal findings Lipid Panel Today E78.5 - Hyperlipidemia, unspecified, Z00.00 - Encounter for general adult medical examination without abnormal findings
--- OUTSIDE RECORDS SUMMARY | 2025-02-10 14:29 | XMS_ITS | Encounter Summary ---
Author Organization [facility] Address [address] [place] [address] Phone Care Team Providers Care Soda Fountain Operator Name Role Phone Radha Arce MD, MPH Primary Care Provid er Self-Referred, Patient Unavailable Unavailab le Self-Referred, Patient Unavailable Unavailab Lola Kim MD Unavailable [phone] Alaina Landaverde MD Unavailable [phone] Sadia Cardona DO Unavailable [phone] Elver Garnett MD Primary Care Provider Encounter Details Date Type Department Care Team (Late st Contact Info) Description 09/25/2018 Procedure Pass DF IMG OUTSIDE IMG [address] [place] [address] Social History Tobacco Use Types Packs/Day Years [...] on filedocumented in this encounter Care Teams Soda Fountain Operator Relationship Specialty Start Date End Date Radha Arce MD, MPH [address] [facility] [address] [place] [address] PCP - General Family Medicine 09/07/18 02/04/21 Elver Garnett MD [address] [place] [address] PCP - General 02/05/21 Self-Referred, Patient Referring Physician 09/07/18 Self-Referred, Patient 09/17/18 Lola Foster MD [address] [place] [id number] [email or web address] Medical Oncology 09/25/18 Alaina Landaverde MD [address] [place] [phone] Medical Oncology 09/25/18 Sadia Cardona DO [address] [place] [phone] Surgical Oncology 09/25/18 documented as of this encounter Additional Source Comments The information contained in this document represents components of the legal health record. It is not the complete legal health record.[facility]
--- OUTSIDE RECORDS SUMMARY | 2025-02-10 14:29 | XMS_ITS | Clinical Summary ---
Author Organization [facility], Address [address] [place] [address] Phone Care Team Providers Care Counselor Nurses' Association Name Role Phone Unavailable Primary Care Provider [...] Sigmoidoscopy 12/20/2020 Influenza Vaccine (#1) 2025 Insurance [facility]
== END 2025-02-10 14:05 | disposition home or self-care (01) ==
LOC: HO.HMCFM 13:37
PROVIDERS: PCP Family Medicine; Visit Provider Family Medicine
DX: I10 Essential (primary) hypertension (principal); E78.5 Hyperlipidemia, unspecified; R74.8 Abnormal levels of other serum enzymes

== ENCOUNTER → 2025-02-10 13:37 | Outpatient (BNVA) | payer OTHER, SELFPAY | PROVIDERS: PCP Family Medicine; Visit Provider Family Medicine | DX: I10 Essential (primary) hypertension (principal); E78.5 Hyperlipidemia, unspecified; R74.8 Abnormal levels of other serum enzymes | CPT/HCPCS: 96127 ==

== ENCOUNTER 2025-02-17 11:25 | Outpatient (AMB) | payer OTHER, SELFPAY | END 2025-02-17 14:25 | disposition home or self-care (01) | LOC: HO.HMGAL 11:25 | PROVIDERS: PCP Family Medicine; Visit Provider Registered Nurse Emergency | DX: J30.89 Other allergic rhinitis (principal) | CPT/HCPCS: 95117; 95165 ==

== ENCOUNTER 2025-02-23 16:22 | Outpatient (AMB) | payer OTHER, SELFPAY ==
--- OUTSIDE RECORDS SUMMARY | 2025-02-23 17:06 | XMS_ITS | Clinical Summary ---
Author Organization [facility] Address [address] [place] [address] Phone Care Team Providers Care City Superintendent Name Role Phone Self-Referred, Patient Unavailable Unavailab le Self-Referred, Patient Unavailable Unavailab Lola Kim MD Unavailable [phone] Alaina Landaverde MD Unavailable [phone] Sadia Cardona DO Unavailable [phone] Elver Garnett MD Primary Care Provider Social History Tobacco Use Types Packs/Day Years Used Date Smoking Tobacco: Never Assessed Education Answer Date Recorded Are you interested in more education? Not on nikolai e 10/27/2022 Are you concerned about learning? Not on file 10/27/2022 No 10/27/2022 No 10/27/2022 Digital Access Answer Date Recorded No 11/24/2022 No 11/24/2022 No 11/24/2022 Reliable internet access at home? Not on file 11/24/2022 Device with a working camera? Not on file Comments Unknown Sex and Gender Information Value Date Recorded Sex Assigned at Female 11/08/2021 11:46 PM EDT Legal Sex Female 4:59 PM EST Gender Identity Female 11/08/2021 11:46 PM EDT Sexual Orientation Straight 11/08/2021 11 :46 PM EDT Last Filed Vital Signs Vital Sign Reading Time Taken Comments Blood Pressure 128/99 02/24/2019 3:04 PM EDT Pulse 111 02/24/2019 3:04 PM EDT Temperature 36.6 C (97.9 F) 02/24/2019 3:04 PM EDT Respiratory Rate 16 02/24/2019 3:04 PM EDT Oxygen Saturation 98% 02/24/2019 3:0 4 PM EDT Inhaled Oxygen Concentration - - Weight 79.2 kg (174 lb 9.7 oz) 02/24/2019 3:[address] [facility] Height 158.5 cm (5' 2.4 ) 02/24/2019 3: 04 PM EDT Copied from [facility] 09/25/18 Body Mass Index 31.53 02/24/2019 3:04 PM EDT Plan of Treatment Health Maintenance Due Date Last Done Comments Adult Td,Tdap Booster 1971 LIPID PANEL 1971 DEPRESSION SCREENING 1983 SMOKING Hx and SMOKELESS TOBACCO SCREENING 12/20/1984 HEPATITIS C SCREENING 12/20/1989 HIV ONE-TIME SCREENING (18-65 YEARS) 12/20/1989 PAP SMEAR 12/20/1992 COLOGUARD 12/20/2016 COLONOSCOPY 12/20/2016 COLORECTAL CANCER SCREENING 12/20/2016 FIT TEST 12/20/2016 FOBT 12/20/2016 SIGMOIDOSCOPY 12/20/2016 VIRTUAL COLONOSCOPY 12/20/2016 MAMMOGRAM 07/22/2020 07/22/2018, 02/2019, 06/26/2018, Additional history exists PNEUMOCOCCAL VACCINES (50+ years) (1 of 1 - PCV) 12/20/2021 ZOSTER VACCINES (1 of 2) 12/20/2021 COVID-19 VACCINE (3 - 2023- season) 2024 08/20/2020, 07/30/2020 HEPATITIS A VACCINES Aged Out No long er eligible based on patient's age to complete this topic HIB VACCINES Aged Out No longer eligi ble based on patient's age to complete this topic MENINGOCOCCAL VACCINES (ACWY) Aged Out No longer eligible based on patient's age to complete this topic MENINGOCOCCAL VACCINES (B) Aged Out N o longer eligible based on patient's age to complete this topic Medical Devices Not on file Procedures Procedure Name Priority Date/Time Associated Diagnosis Comments BI MRI BREAST OUTSIDE (NO INTERPRETATION) Routine 07/22/2018 12:00 AM EST from Last 3 Months or Most Recently Relevant to Health Maintenance Results * MRI Breast Outside (No Interpretation) (07/22/2018 12:00 AM EST) Other Narrative JEFF - 09/25/2018 10:40 AM EDT This study is for PACS storage only and not for interpretation. Lola Foster MD IMG OUTSIDE IMAGING W/O UT INTERPRETATION Final Result LIANNE_KAREN from Last 3 Months or Most Recently Relevant to Health Maintenance Insurance [address] [place], [place] [address] [place], [place] [address] [place], [place] [address]O Care Teams City Superintendent Relationship Specialty Start Date End Date Elver Garnett MD [address] [place] [id number] PCP - General 02/05/21 Self-Referred, Patient Referring Physician 09/07/18 Self-Referred, Patient 09/17/18 Lola Foster MD [address] [place] [phone] [email or web address] Medical Oncology 09/25/18 Alaina Landaverde MD [address] [place], [place] [address] [address] Medical Oncology 09/25/18 Sadia Cardona DO [address] [place] [phone] Surgical Oncology 09/25/18 Additional Source Comments The information contained in this document represents components of the legal health record. It is not the complete legal health record.[facility]
--- OUTSIDE RECORDS SUMMARY | 2025-02-23 17:06 | XMS_ITS | Encounter Summary ---
Author Organization [facility] Address [address] [place] [address] Phone Care Team Providers Care Waiter/Waitress Dining Car Name Role Phone Radha Arce MD, MPH Primary Care Provid er Self-Referred, Patient Unavailable Unavailab le Self-Referred, Patient Unavailable Unavailab Lola Kim MD Unavailable [phone] Alaina Landaverde MD Unavailable [phone] Sadia Cardona DO Unavailable [phone] Elver Garnett MD Primary Care Provider Encounter Details Date Type Department Care Team (Late st Contact Info) Description 09/25/2018 Procedure Pass DF IMG OUTSIDE IMG [address] [place] [address] Social History Tobacco Use Types Packs/Day Years [...] on filedocumented in this encounter Care Teams Waiter/Waitress Dining Car Relationship Specialty Start Date End Date Radha Arce MD, MPH [address] [place] [address] PCP - General Family Medicine 09/07/18 02/04/21 Elver Garnett MD [address] [place] [address] PCP - General 02/05/21 Self-Referred, Patient Referring Physician 09/07/18 Self-Referred, Patient 09/17/18 Lola Foster MD [address] [place] [address] [email or web address] Medical Oncology 09/25/18 Alaina Landaverde MD [address] [place] [address] Medical Oncology 09/25/18 Sadia Cardona DO [address] [place] [phone] Surgical Oncology 09/25/18 documented as of this encounter Additional Source Comments The information contained in this document represents components of the legal health record. It is not the complete legal health record.[facility]
--- OUTSIDE RECORDS SUMMARY | 2025-02-23 17:06 | XMS_ITS | Clinical Summary ---
Author Organization [facility], Address [address] [place] [address] Phone Care Team Providers Care Dietary Supervisor Name Role Phone Unavailable Primary Care Provider [...] Sigmoidoscopy 12/20/2020 Influenza Vaccine (#1) 2025 Insurance [facility]
== END 2025-02-23 16:25 | disposition home or self-care (01) ==
LOC: HO.HMGAL 16:22
PROVIDERS: PCP Family Medicine; Visit Provider Registered Nurse Emergency
DX: J30.89 Other allergic rhinitis (principal)
CPT/HCPCS: 95117; 95165

== ENCOUNTER 2025-03-09 16:24 | Outpatient (AMB) | payer OTHER, SELFPAY ==
--- OUTSIDE RECORDS SUMMARY | 2025-03-09 18:44 | XMS_ITS | Encounter Summary ---
Author Organization [facility] Address [address] [place] [address] Phone Care Team Providers Care Parts Cleaner Name Role Phone Radha Arce MD, MPH Primary Care Provid er Self-Referred, Patient Unavailable Unavailab le Self-Referred, Patient Unavailable Unavailab le Lola Foster MD Unavailable [phone] Alaina Landaverde MD Unavailable [phone] Sadia Cardona DO Unavailable [phone] Elver Garnett MD Primary Care Provider Encounter Details Date Type Department Care Team (Late st Contact Info) Description 09/25/2018 Procedure Pass DF IMG OUTSIDE IMG [address] [place] [address] Social History Tobacco Use Types Packs/Day Years [...] on filedocumented in this encounter Care Teams Parts Cleaner Relationship Specialty Start Date End Date Radha Arce MD, MPH [address] [place] [address] [address] [email or web address] PCP - General Family Medicine 09/07/18 02/04/21 Elver Garnett MD [address] [place] [address] PCP - General 02/05/21 Self-Referred, Patient Referring Physician 09/07/18 Self-Referred, Patient 09/17/18 Lola Foster MD [address] [place] [address] [email or web address] Medical Oncology 09/25/18 Alaina Landaverde MD [address] [place] [address] Medical Oncology 09/25/18 Sadia Cardona DO [address] [place] [phone] Surgical Oncology 09/25/18 documented as of this encounter Additional Source Comments The information contained in this document represents components of the legal health record. It is not the complete legal health record.[facility]
--- OUTSIDE RECORDS SUMMARY | 2025-03-09 18:44 | XMS_ITS | Clinical Summary ---
Author Organization [facility], Address [address] [place] [address] Phone Care Team Providers Care Liquefaction Plant Operator Name Role Phone Unavailable Primary Care Provider [...] Sigmoidoscopy 12/20/2020 Influenza Vaccine (#1) [address] [facility]
--- OUTSIDE RECORDS SUMMARY | 2025-03-09 18:44 | XMS_ITS | Clinical Summary ---
Author Organization [facility] Address [address] [place] [phone] Phone Care Team Providers Care Nurse Practitioner Home Assessments Name Role Phone Self-Referred, Patient Unavailable Unavailab le Self-Referred, Patient Unavailable Unavailab le Lola Foster MD Unavailable [phone] Alaina Landaverde MD Unavailable [phone] Sadia Cardona DO Unavailable [phone] Elver Garnett MD Primary Care Provider Social [...] lb 9.7 oz) 02/24/2019 3:04 PM EDT [facility] Height 158.5 cm (5' 2.4 ) 02/24/2019 3: 04 PM EDT Copied from [facility] 09/25/18 Body Mass Index 31.53 02/24/2019 3:04 [...] 12/20/2021 ZOSTER VACCINES (1 of 2) 12/20/2021 INFLUENZA VACCINE (#1) 2025 , 08/07/2018, 03/21/2016 COVID-19 VACCINE (3 - 2024- season) 2025 08/20/2020, 07/30/2020 HEPATITIS A VACCINES Aged Out [...] OUTSIDE IMAGING W/O UT INTERPRETATION Final Result [facility] from Last 3 Months or Most Recently Relevant to Health Maintenance Insurance [address] [place] [address] [facility] [address] [place] [address] [place] Address: [facility] [address] [place] [address] Care Teams Nurse Practitioner Home Assessments Relationship Specialty Start Date End Date Elver Garnett MD [address] [place] [address] PCP - General 02/05/21 Self-Referred, Patient Referring Physician 09/07/18 Self-Referred, Patient 09/17/18 Lola Foster MD [address] [place] [address] [email or web address] Medical Oncology 09/25/18 Alaina Landaverde MD [address] [place] [address] Medical Oncology 09/25/18 Sadia Cardona DO [address] [place] [phone] Surgical Oncology 09/25/18 Additional Source Comments The information contained in this document represents components of the legal health record. It is not the complete legal health record.[facility]
== END 2025-03-09 16:26 | disposition home or self-care (01) ==
LOC: HO.HMGAL 16:24
PROVIDERS: PCP Family Medicine; Visit Provider Registered Nurse Emergency
DX: J30.89 Other allergic rhinitis (principal)
CPT/HCPCS: 95117; 95165

== ENCOUNTER 2025-03-23 16:27 | Outpatient (AMB) | payer OTHER, SELFPAY ==
--- OUTSIDE RECORDS SUMMARY | 2025-03-23 18:08 | XMS_ITS | Clinical Summary ---
Author Organization [facility], Address [address] [place] [address] Phone Care Team Providers Care Weeder Name Role Phone Unavailable Primary Care Provider [...] Sigmoidoscopy 12/20/2020 Influenza Vaccine (#1) [address] [facility]
--- OUTSIDE RECORDS SUMMARY | 2025-03-23 18:08 | XMS_ITS | Encounter Summary ---
Author Organization [facility] Address [address] [place] [address] Phone Care Team Providers Care Radio Repairman Name Role Phone Radha Arce MD, MPH Primary Care Provid er Self-Referred, Patient Unavailable Unavailab le Self-Referred, Patient Unavailable Unavailab le Lola Foster MD Unavailable [phone] Alaina Landaverde MD Unavailable [phone] Sadia Cardona DO Unavailable Elver Garnett MD Primary Care Provider Encounter Details Date Type Department Care Team (Late st Contact Info) Description 09/25/2018 Procedure Pass DF IMG OUTSIDE IMG [address] [place] [address] Social History Tobacco Use Types Packs/Day Years [...] on filedocumented in this encounter Care Teams Radio Repairman Relationship Specialty Start Date End Date Radha Arce MD, MPH [address] [place] [address] [address] [email or web address] PCP - General Family Medicine 09/07/18 02/04/21 Elver Garnett MD [address] [place] [address] PCP - General 02/05/21 Self-Referred, Patient Referring Physician 09/07/18 Self-Referred, Patient 09/17/18 Lola Foster MD [address] [place] [address] [email or web address] Medical Oncology 09/25/18 Alaina Landaverde MD [address] [place] [phone] Medical Oncology 09/25/18 Sadia Cardona DO [address] [place] [phone] Surgical Oncology 09/25/18 documented as of this encounter Additional Source Comments The information contained in this document represents components of the legal health record. It is not the complete legal health record.[facility]
--- OUTSIDE RECORDS SUMMARY | 2025-03-23 18:08 | XMS_ITS | Clinical Summary ---
Author Organization [facility] Address [address] [place] [address] Phone Care Team Providers Care Maintenance Person Name Role Phone Self-Referred, Patient Unavailable Unavailab le Self-Referred, Patient Unavailable Unavailab le Lola Foster MD Unavailable [phone] Alaina Landaverde MD Unavailable [phone] Sadia Cardona DO Unavailable [phone] Elver Garnett MD Primary Care Provider Social [...] 9.7 oz) 02/24/2019 3:[address] [facility] Height 158.5 cm (5' 2.4 ) 02/24/2019 3: 04 PM EDT Copied from [facility] 09/25/18 Body Mass Index 31.53 [...] Health Maintenance Insurance [address] [place], [place] [address] [address] [place] [place] [address] Care Teams Maintenance Person Relationship Specialty Start Date End Date Elver Garnett MD [address] [place] [address] PCP - General 02/05/21 Self-Referred, Patient Referring Physician 09/07/18 Self-Referred, Patient 09/17/18 Lola Foster MD [address] [place] [address] [email or web address] Medical Oncology 09/25/18 Alaina Landaverde MD [address] [place] [address] Medical Oncology 09/25/18 Sadia Cardona DO [address] [place] [phone] Surgical Oncology 09/25/18 Additional Source Comments The information contained in this document represents components of the legal health record. It is not the complete legal health record.[facility]
== END 2025-03-23 16:28 | disposition home or self-care (01) ==
LOC: HO.HMGAL 16:27
PROVIDERS: PCP Family Medicine; Visit Provider Registered Nurse Emergency
DX: J30.89 Other allergic rhinitis (principal)
CPT/HCPCS: 95117; 95165

== ENCOUNTER 2025-04-06 15:36 | Outpatient (AMB) | payer OTHER, SELFPAY | END 2025-04-06 15:49 | disposition home or self-care (01) | LOC: HO.HMGAL 15:36 | PROVIDERS: PCP Family Medicine; Visit Provider Registered Nurse Emergency | DX: J30.89 Other allergic rhinitis (principal) | CPT/HCPCS: 95117; 95165 ==

== ENCOUNTER 2025-04-27 15:40 | Outpatient (AMB) | payer OTHER, SELFPAY ==
--- OUTSIDE RECORDS SUMMARY | 2025-04-21 23:59 | XMS_ITS | Continuity of Care Document ---
Author Organization [facility] Address [address] [place] [address]- Care Team Providers Care Supervisor Heading Name Role Phone Elver Garnett MD Primary Care Physician [id number] Date(s): 04/14/25 - 04/21/25 [facility] [address], [place] [address] Attending Physician: Paris Ag MD Referring Physician: Elver Garnett MD Encounter Type: Office Visit Allergies, Adverse Reactions, Alerts Substance Criticality Severity Reaction Reaction Severity Status erythromycin HIVES ITCHING Act declan Taxol itchy throat Active Contrast Dye Active Other Environmental Allergy seasonal Active Soy Products Local congestion Active Medications anastrozole 1 mg oral tablet 1 tablet, By Mouth, Daily, # 90 tablet, 3 Refills, Maintenance, 02/21/25 2:40:00 PM EDT, [facility]/pharmacy #[id number], 157.48, cm, 02/21/25 14:07:00 EDT, Height, 82.2, kg, 02/21/25 14:07:00 EDT, Dry Weight Start Date: 02/21/25 Status: Ordered Medication Dispense Status: Completed Quantity: 90.0 Unit: tablet Total Allowed Fills: 4 Fills Dispensed: 0 Calcium Citrate Tablet Refills 0, Maintenance, 09/01/23 12:06:00 PM EST, Partial fill upon patient request if the prescription is for a schedule II opioid drug. Start Date: 09/01/23 Status: Ordered Medication Dispense Status: Completed Total Allowed Fills: 1 Fills Dispensed: 0 desvenlafaxine 100 mg oral tablet, extended release 1 tablet = 100 mg, By Mouth, Daily, # 30 tablet, 0 Refills, Maintenance, 10/04/22 11:50:00 AM EDT, ERTablet, Partial fill upon patient request if the prescription is for a schedule II opioid drug. Start Date: 10/04/22 Status: Ordered Medication Dispense Status: Completed Quantity: 30.0 Unit: tablet Total Allowed Fills: 1 Fills Dispensed: 0 Excedrin Migraine By Mouth, Every 6 hours, 0 Refills, Maintenance, 02/22/20 11:14:00 AM EDT Start Date: 02/22/20 Status: Ordered Medication Dispense Status: Completed Total Allowed Fills: 1 Fills Dispensed: 0 Folic Acid = 400 mcg, By Mouth, Daily in AM, 0 Refills, Maintenance, 07/20/20 12:16:00 PM EST, Partial fill upon patient request if the prescription is for a schedule II opioid drug. Start Date: 07/20/20 Status: Ordered Medication Dispense Status: Completed Total Allowed Fills: 1 Fills Dispensed: 0 Hydrochlorothiazide = 12.5 mg, By Mouth, Daily in AM, 0 Refills, Maintenance, 08/17/18 11:03:25 AM EST Start Date: 08/17/18 Status: Ordered Medication Dispense Status: Completed Total Allowed Fills: 1 Fills Dispensed: 0 Ibuprofen Tablet 600 mg, By Mouth, 3 times a day, PRN, Refills 0, Maintenance, Pain , Mild, 02/22/25 9:33:00 AM EDT, Partial fill upon patient request if the prescription is for a schedule II opioid drug. Start Date: 02/22/25 Status: Ordered Medication Dispense Status: Completed Total Allowed Fills: 1 Fills Dispensed: 0 levocetirizine 5 mg oral tablet 1 tablet = 5 mg, By Mouth, Daily at bedtime, 0 Refills, Maintenance, 06/27/21 3:04:00 PM EST, Partial fill upon patient request if the prescription is for a schedule II opioid drug. Start Date: 06/27/21 Status: Ordered Medication Dispense Status: Completed Total Allowed Fills: 1 Fills Dispensed: 0 LORazepam 0.5 mg oral tablet 1 tablet = 0.5 mg, By Mouth, Every 8 hours, 0 Refills, Maintenance, 09/01/23 12:06:00 PM EST, Partialfill upon patient request if the prescription is for a schedule II opioid drug. Start Date: 09/01/23 Status: Ordered Medication Dispense Status: Completed Total Allowed Fills: 1 Fills Dispensed: 0 LUE custom comptession sleeve CCL1 LUE custom comptession sleeve CCL1, See Instructions, # 2 each, Refills 0, Tot. Refills 0, Maintenance, diagnosis: lymphedema ICD-10 189.0, 04/13/21 4:33:00 PM EDT, Supply Start Date: 04/13/21 Status: Ordered Medication Dispense Status: Completed Quantity: 2.0 Unit: each Total Allowed Fills: 1 Fills Dispensed: 0 Mastectomy Bra See Instructions, # 3 each, Refills 1, Tot. Refills 1, Maintenance, History of left breast cancer Left mastectomy Diagnosis: C50.912, 02/04/23 2:28:00 PM EDT, Supply Start Date: 02/04/23 Status: Ordered Medication Dispense Status: Completed Quantity: 3.0 Unit: each Total Allowed Fills: 2 Fills Dispensed: 0 Mastectomy Prosthesis See Instructions, # 1 each, Refills 1, Tot. Refills 1, Maintenance, History of left breast cancer Left mastectomy Diagnosis: C50.912, 08/09/21 4:25:00 PM EST, Supply Start Date: 08/09/21 Status: Ordered Medication Dispense Status: Completed Quantity: 1.0 Unit: each Total Allowed Fills: 2 Fills Dispensed: 0 Trazodone = 150 mg, By Mouth, Daily, 0 Refills, Maintenance, 04/14/25 1:26:00 PM EDT, Partial fill upon patient request if the prescription is for a schedule II opioid drug. Start Date: 04/14/25 Status: Ordered Medication Dispense Status: Completed Total Allowed Fills: 1 Fills Dispensed: 0 turmeric 250 mg oral capsule 2 capsule = 500 mg, By Mouth, Daily, 0 Refills, Maintenance, 04/14/25 1:27:00 PM EDT, Capsule, Partial fill upon patient request if the prescription is for a schedule II opioid drug. Start Date: 04/14/25 Status: Ordered Medication Dispense Status: Completed Total Allowed Fills: 1 Fills Dispensed: 0 Tylenol 325 mg oral capsule 2 capsule = 650 mg, By Mouth, Every 4 hours, PRN as needed for pain, # 20 capsule, 0 Refills, Maintenance, 10/18/20 11:28:00 AM EDT, Capsule, Partial fill upon patient request if the prescription is for a schedule II opioid drug. Start Date: 10/18/20 Status: Ordered Medication Dispense Status: Completed Quantity: 20.0 Unit: capsule Total Allowed Fills: 1 Fills Dispensed: 0 Vitamin D3 = 25 mcg, By Mouth, Daily, 0 Refills, Maintenance, 07/20/20 12:16:00 PM EST, Partial fill upon patient request if the prescription is for a schedule II opioid drug. 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 Active Acquired absence of left breast Confirmed Active Anxiety Confirmed Active Depression Confirmed Active Left axillary fullness Confirmed Active H/O optic neuritis Confirmed Active History of fainting spells of unknown cause Confirmed Active Hypertension Confirmed Active Acquired lymphedema Confirmed Active Breast cancer, left breast Confirmed Active Menopausal symptom Confirmed Active Obese class I Confirmed Active Malignant neoplasm of overlapping sites of left breast in female, estrogen receptor positive Confirmed Active Encounter for well woman exam with routine gynecological exam Confirmed Active Vital Signs Most recent to oldest [Reference Range]: 1 Height 157.48 cm (04/14/25 1:20 PM) Weight 81.4 kg (04/14/25 1:20 PM) Body Mass Index [18.5-24.99 kg/m2] 32.82 kg/m2 *>HHI* (04/14/25 1:20 PM) Blood Pressure [90-138/55-84 mm Hg] 112/ 70mm Hg (04/14/25 1:20 PM) Blood pressure sites Arm, right (04/14/25 1:20 PM) Weight Obtained Via Standing scale (04/14/25 1:20 PM) Social History Social History Type Response Sexual Sexually involved in last 6 months: Yes. Gender identity: Identifies as female. Preferred pronoun: She/her. Ever been sexually involved? Yes. Gender of partner(s): Male. Smoking Status Never (less than 100 in lifetime) entered on: 07/17/18 Sex Sex Representation Female (finding) Implantable Device List Procedure Provider Procedure Date Device Type Site Reconstruction Breast First Stage Dustin Donovan MD, Mariusz Cabral 08/24/18 Unknown Breast Left Device Identifier Serial Number Lot or Batch Number Manufacturing Date Expiration Date Distinct Identification Code MRI Safety Implantable Status Assigning Authority Unknown [id number] Unknown 04/29/23 Unknown Unknown Active Unknown Note * Dougie Tirado: PERFORM Event Display: Patient Education/Instruction Authored Date: [id number] Ambulatory Adult Visit Summary [facility] [address] [place] [address] Name: DANA GHOTRA : 1970?? Visit: 04/14/2025 13:18?? Ambulatory Visit Instructions ?? Your Care Team Primary Care Provider Tamir LAI , Elver Cabral? This Visit Provider Kimberli LAI, Paris Batista Vitals Signs Systolic Blood Pressure: 112 mm Hg Height: 157.48 cm Diastolic Blood Pressure: 70 mm Hg Weight: 81.4 kg ?? Body Mass Index:??32.82 kg/m2??Critical ?? Body surface area: 1.89 What to do next Follow-Up Appointments [facility] When:In 1 year Where:[address] [place] [address]- [phone] Medications The list below reflects the information in our records and provided by you today along with any changes made during this visit. Please continue your medications until treatment is completed or stopped by your provider. If this is different from the information you have or there are other questions,please contact the prescribing provider. What How Much When Instructions Unchanged Acetaminophen (Tylenol 325 mg oral capsule) 2 capsule Oral Every 4 hours as needed for as needed for pain Ordering Physician: Ron Medellin MD Unchanged Anastrozole (anastrozole 1 mg oral tablet) 1 tab(s) Oral Daily Ordering Physician: Shila Kenny NP Unchanged Apap/ Asa/ Caffeine (Excedrin Migraine) Oral Every 6 hours Unchanged Calcium Citrate (Calcium Citrate Tablet) Unchanged Cholecalciferol (Vitamin D3 2000 intl units oral tablet) 1 tab(s) Oral Daily Unchanged Cholecalciferol (Vitamin D3) 25 Microgram Oral Daily Unchanged Desvenlafaxine (desvenlafaxine 100 mg oral tablet, extended release) 1 tab(s) Oral Daily Unchanged Durable Medical Equipment (Mastectomy Bra) See instructions Special Instructions: History of left breast cancer
Left mastectomy
Diagnosis: C50.912 Ordering Physician: Rossana Malik NP ?? Unchanged Durable Medical Equipment (Mastectomy Prosthesis) See instructions Special Instructions: History of left breast cancer
Left mastectomy
Diagnosis: C50.912 Ordering Physician: Rossana Malik NP ?? Unchanged Folic Acid 400 Microgram Oral Daily in the morning Unchanged Hydrochlorothiazide 12.5 Milligram Oral Daily in the morning Unchanged Ibuprofen (Ibuprofen Tablet) 600 Milligram Oral 3 times a day as needed for Pain , Mild Unchanged levocetirizine (levocetirizine 5 mg oral tablet) 1 tab(s) Oral Daily at Bedtime Unchanged Lorazepam (LORazepam 0.5 mg oral tablet) 1 tab(s) Oral Every 8 hours Unchanged Lorazepam (LORazepam 1 mg oral tablet) See instructions Special Instructions: 1 tablet By Mouth 30 minutes preprocedure,, As needed for as needed for anxiety Ordering Physician: Diamond Rosado NP ?? Unchanged Miscellaneous Rx (LUE custom comptession sleeve CCL1) See instructions Special Instructions: diagnosis: lymphedema ICD-10 189.0 Ordering Physician: Meaghan Redd NP ?? Unchanged Naproxen (Anaprox-DS) 550 Milligram Oral Twice a day Unchanged Trazodone 150 Milligram Oral Daily Unchanged turmeric (turmeric 250 mg oral capsule) 2 capsule Oral Daily Medications and Immunizations Administered Medications Given During Visit No medications given during this visit.?? Allergies (NKA means No Known Allergies) Contrast Dye Other Environmental Allergy??seasonal Soy Products??Local congestion Taxol??itchy throat erythromycin??HIVES ITCHING Common Emergency Awareness Tips IS IT A STROKE? Act FAST and Check for these signs: FACE Does the face look uneven? ARM Does one arm drift down? SPEECH Does their speech sound strange? TIME Call at any sign of stroke ?? Heart Attack Signs Chest discomfort: Most heart attacks involve discomfort in the center of the chest and lasts more than a few minutes, or goes away and comes back. It can feel like uncomfortable pressure, squeezing, fullness or pain. Discomfort in upper body: Symptoms can include pain or discomfort in one or both arms, back, neck, jaw or stomach. Shortness of breath: With or without discomfort. Other signs: Breaking out in a cold sweat, nausea, or lightheaded. Remember, MINUTES DO MATTER. If you experience any of these heart attack warning signs, call to get immediate medical attention! ?? Smoking can increase your chances of developing chronic health problems and can cause harmful effects to other family members in your house. If you smoke, you are strongly encouraged to quit. Please call [facility] [email or web address] Link at [phone] or [phone] ([phone]) or log in to [email or web address] for referrals to smoking cessation programs. ?? The National Suicide Prevention Hotline is available 20/01 if you or someone you know needs to find a reason to keep living. By calling 8-790-132-Pinshape (6444) you'll be connected to a skilled, trained counselor at a crisis center in your area. [facility] [email or web address][email or web address] Portal You can view and manage your care through the patient portal or by using a health care sam of your choosing. Mus[employer] is a website that allows you to securely view your medical information including your hospital discharge summary, office visit summaries, medications and follow-up visits. You can also request appointments, renew medications, and request access to your medical information using a health care sam of your choosing, or just ask a question. You can enroll at [email or web address] or register during your next office visit. [facility], in keeping with [facility] guidance, no longer requires face masks for staff, patientsor visitors in most situations. Similiar to time spent indoors at other locations, there is the chance that you were exposed to repiratory viruses during your time with us (such as flu or COVID-19). If you develop symptoms concerning for a viral respiratory infection, please seek testing (and treatment if indicated) from your medical provider or home test kit. ?? Disclaimer: The information provided is of a general nature and is intended to be used in conjunction with the recommendations and advice of your health care practitioner. Every effort has been made to ensure that the information provided is accurate and complete at the time it is provided to you however, as your needs change, or, as new information becomes available, different or additional instructions may be required. ?? If you have questions, please consult with your primary care provider or pharmacist, as appropriate. This information is not intended to serve as substitution for assessment and evaluation by a qualified health care provider. If you do not have a primary care provider, you may find a [facility] provider by calling [facility] at [phone]. Patient Care team information Care Team Personnel Name: Keila Dillon Position: [facility] Onco RN Member Role: Primary Care Nurse Name: Iqra Avila RN Position: [facility] RN Member Role: Primary Care Nurse Name: Meaghan Camacho RN Position: [facility] Onco RN Member Role: Primary Care Nurse Name: Victoria Hussein MA Position: [facility] Quality Assurance Supervisor Body Coordinator Member Role: Primary Care Nurse Name: Elver Garnett MD Position: [facility] Outreach Member Role: PCP Address: [address] [place] [address] Telecom: Name: Dillan Guillaume RN Position: [facility] RN Supv Member Role: Primary Care Nurse Name: Vee Mazariegos RN Position: [facility] Onco RN Member Role: Primary Care Nurse Name: Aneta Lima RN Position: [facility] RN Supv Member Role: Primary Care Nurse Care Team Related Persons Name: MAYLIN MALIK Insurance Providers Guarantor name: [facility] Information #: 1 Payer: [employer] Payer Identifier: NA Member Number: [id number] Group Number: [id number] Subscriber Identifier: [id number] Relationship to Subscriber: spouse Coverage Type: Commercial Managed Care - HMO Coverage Verification Date: NA Telecom: NA Address:
--- OUTSIDE RECORDS SUMMARY | 2025-04-27 19:54 | XMS_ITS | Encounter Summary ---
Author Organization [facility] Address [address] [place] [address] Phone Care Team Providers Care Lead Javascript Developer Name Role Phone Radha Arce MD, MPH Primary Care Provid er Self-Referred, Patient Unavailable Unavailab le Self-Referred, Patient Unavailable Unavailab le Lola Foster MD Unavailable [phone] Alaina Landaverde MD Unavailable [phone] Sadia Cardona DO Unavailable [phone] Elver Garnett MD Primary Care Provider Encounter Details Date Type Department Care Team (Late st Contact Info) Description 09/25/2018 Procedure Pass DF IMG OUTSIDE IMG [address] [place] [address] Social History Tobacco Use Types Packs/Day Years [...] on filedocumented in this encounter Care Teams Lead Javascript Developer Relationship Specialty Start Date End Date Radha Arce MD, MPH [address] [place] [address] [address] [email or web address] PCP - General Family Medicine 09/07/18 02/04/21 Elver Garnett MD [address] [place] [phone] PCP - General 02/05/21 Self-Referred, Patient Referring Physician 09/07/18 Self-Referred, Patient 09/17/18 Lola Foster MD [address] [place] [phone] [email or web address] Medical Oncology 09/25/18 Alaina Landaverde MD [address] [address] Medical Oncology 09/25/18 Sadia Cardona DO [address] [place] [phone] Surgical Oncology 09/25/18 documented as of this encounter Additional Source Comments The information contained in this document represents components of the legal health record. It is not the complete legal health record.[facility]
--- OUTSIDE RECORDS SUMMARY | 2025-04-27 19:54 | XMS_ITS | Clinical Summary ---
Author Organization [facility], Address [address] [place] [address] Phone Care Team Providers Care Pe Manager Name Role Phone Unavailable Primary Care Provider [...] Sigmoidoscopy 12/20/2020 Influenza Vaccine (#1) 2025 Insurance [facility]
--- OUTSIDE RECORDS SUMMARY | 2025-04-27 19:54 | XMS_ITS | Clinical Summary ---
Author Organization [facility] Address [address] [place] [address] Phone Care Team Providers Care Wood Last Maker Name Role Phone Self-Referred, Patient Unavailable Unavailab le Self-Referred, Patient Unavailable Unavailab le Lola Foster MD Unavailable [phone] Alaina Landaverde MD Unavailable [phone] Sadia Cardona DO Unavailable [phone] Elver Garnett MD Primary Care Provider Social [...] lb 9.7 oz) 02/24/2019 3:04 PM EDT [facility] Height 158.5 cm (5' 2.4 ) 02/24/2019 3: 04 PM EDT Copied from [facility] 09/25/18 Body Mass Index 31.53 02/24/2019 3:04 [...] (3 - 2024- season) 2025 08/20/2020, 07/30/2020 RSV VACCINE (1 - 1-dose 75+ series) 12/20/2046 HEPATITIS A VACCINES Aged Out No long [...] OUTSIDE IMAGING W/O UT INTERPRETATION Final Result LIANNE_JACKSONH from Last 3 Months or Most Recently Relevant to Health Maintenance Insurance [place] [address] [place] [address] [place] [address] [facility] [address] [place] [address] [place] [address]O [employer] Care Teams Wood Last Maker Relationship Specialty Start Date End Date Elver Garnett MD [address] [place] [address] PCP - General 02/05/21 Self-Referred, Patient Referring Physician 09/07/18 Self-Referred, Patient 09/17/18 Lola Foster MD [address] [place] [phone] [email or web address] Medical Oncology 09/25/18 Alaina Landaverde MD [address] [place] [address] Medical Oncology 09/25/18 Sadia Cardona DO [address] [place] [phone] Surgical Oncology 09/25/18 Additional Source Comments The information contained in this document represents components of the legal health record. It is not the complete legal health record.[facility]
== END 2025-04-27 15:41 | disposition home or self-care (01) ==
LOC: HO.HMGAL 15:40
PROVIDERS: PCP Family Medicine; Visit Provider Registered Nurse Emergency
DX: J30.89 Other allergic rhinitis (principal)
CPT/HCPCS: 95117; 95165

== ENCOUNTER 2025-05-11 16:16 | Outpatient (AMB) | payer OTHER, SELFPAY ==
--- OUTSIDE RECORDS SUMMARY | 2025-05-11 19:00 | XMS_ITS | Clinical Summary ---
Author Organization [facility] Address [address] [place] [address] Phone Care Team Providers Care Counter Dish Carrier Name Role Phone Self-Referred, Patient Unavailable Unavailab le Self-Referred, Patient Unavailable Unavailab le Lola Foster MD Unavailable [phone] Alaina Landaverde MD Unavailable [phone] Sadia Cardona DO Unavailable [phone] Elver Garnett MD Primary Care Provider Social [...] lb 9.7 oz) 02/24/2019 3:04 PM EDT [facility] Height 158.5 cm (5' 2.4 ) 02/24/2019 3: 04 PM EDT Copied from [facility] 09/25/18 Body Mass Index 31.53 02/24/2019 [...] on patient's age to complete this topic IPV VACCINES Aged Out No longer eligi ble [...] Relevant to Health Maintenance Insurance [facility] [place] [address] [place] [address] [place], [place] [address]O [facility] HMO Care Teams Counter Dish Carrier Relationship Specialty Start Date End Date Elver Garnett MD [address] [place] [phone] PCP - General 02/05/21 Self-Referred, Patient Referring Physician 09/07/18 Self-Referred, Patient 09/17/18 Lola Foster MD [address] [place] [phone] [email or web address] Medical Oncology 09/25/18 Alaina [facility]andaverde MD [facility] [address] [address] Medical Oncology 09/25/18 Sadia Cardona DO [address] [place] [phone] Surgical Oncology 09/25/18 Additional Source Comments The information contained in this document represents components of the legal health record. It is not the complete legal health record.[facility]
--- OUTSIDE RECORDS SUMMARY | 2025-05-11 19:00 | XMS_ITS | Clinical Summary ---
Author Organization [facility], Address [address] [place] [address] Phone Care Team Providers Care Food And Beverage Cashier Name Role Phone Unavailable Primary Care Provider [...] Sigmoidoscopy 12/20/2020 Influenza Vaccine (#1) 2025 Insurance [facility]
--- OUTSIDE RECORDS SUMMARY | 2025-05-11 19:00 | XMS_ITS | Encounter Summary ---
Author Organization [facility] Address [address] [facility] [address] [place] [address] Phone Care Team Providers Care Mold Filler And Drainer Name Role Phone Radha Arce MD, MPH Primary Care Provid er Self-Referred, Patient Unavailable Unavailab le Self-Referred, Patient Unavailable Unavailab le Lola Foster MD Unavailable [phone] Alaina Landaverde MD Unavailable [phone] Sadia Cardona DO Unavailable [phone] Elver Garnett MD Primary Care Provider Encounter Details Date Type Department Care Team (Late st Contact Info) Description 09/25/2018 Procedure Pass DF IMG OUTSIDE IMG [address] [place] [address] Social History Tobacco Use Types Packs/Day Years [...] on filedocumented in this encounter Care Teams Mold Filler And Drainer Relationship Specialty Start Date End Date Radha Arce MD, MPH [address] [place] [address] [address] [email or web address] PCP - General Family Medicine 09/07/18 02/04/21 Elver Garnett MD [address] [place] [phone] PCP - General 02/05/21 Self-Referred, Patient Referring Physician 09/07/18 Self-Referred, Patient 09/17/18 Lola Foster MD [address] [place] [phone] [email or web address] Medical Oncology 09/25/18 Alaina Landaverde MD [address] [phone] Medical Oncology 09/25/18 Sadia Cardona DO [address] [place] [phone] Surgical Oncology 09/25/18 documented as of this encounter Additional Source Comments The information contained in this document represents components of the legal health record. It is not the complete legal health record.[facility]
== END 2025-05-11 16:29 | disposition home or self-care (01) ==
LOC: HO.HMGAL 16:16
PROVIDERS: PCP Family Medicine; Visit Provider Registered Nurse Emergency
DX: J30.89 Other allergic rhinitis (principal)
CPT/HCPCS: 95117; 95165

== ENCOUNTER 2025-05-13 14:51 | Outpatient (REF) | payer OTHER, SELFPAY ==
[2025-05-13 15:45] LABS: Appearance Urine Clear; Glucose Urine UA Negative (Negative); PH 6.0 (5.0-9.0); Specific Gravity - Urine 1.015 (1.005-1.025); UMIC TRIGGER UACC YES
[2025-05-13 15:52] LABS: UACC Culture Trigger YES
[2025-05-13 15:54] LABS: Alanine Aminotransferase 15 U/L (0-31); Albumin Level 4.8 g/dL (3.5-5.0); Alkaline Phosphatase 76 U/L (39-117); Anion Gap 12 (12-20); Aspartate Amino Transferase 24 U/L (5-31); Blood Urea Nitrogen 17 mg/dL (9-16); Calcium 10.0 mg/dL (8.4-10.2); Carbon Dioxide 27 mmol/L (22-29); Chloride 104 mmol/L (96-108); Cholesterol 246 mg/dL (<200); Estimated Glomerular Filt Rate 58; HDL Cholesterol 56 mg/dL (>40); Potassium 4.0 mmol/L (3.3-5.1); Sodium 139 mmol/L (135-145); Total Protein 7.8 g/dL (6.5-8.0); Triglycerides 213 mg/dL (<150)
--- OUTSIDE RECORDS SUMMARY | 2025-05-13 22:28 | XMS_ITS | Encounter Summary ---
Author Organization [facility] Address [address] [facility] [address] [place] [address] Phone Care Team Providers Care Equal Opportunity Assistant Name Role Phone Radha Arce MD, MPH Primary Care Provid er Self-Referred, Patient Unavailable Unavailab le Self-Referred, Patient Unavailable Unavailab le Lola Foster MD Unavailable [phone] Alaina Landaverde MD Unavailable [phone] Sadia Cardona DO Unavailable [phone] Elver Garnett MD Primary Care Provider Encounter Details Date Type Department Care Team (Late st Contact Info) Description 09/25/2018 Procedure Pass DF IMG OUTSIDE IMG [address] [place] [address] Social History Tobacco Use Types Packs/Day Years [...] on filedocumented in this encounter Care Teams Equal Opportunity Assistant Relationship Specialty Start Date End Date Radha Arce MD, MPH [address] [place] [address] [address] [email or web address] PCP - General Family Medicine 09/07/18 02/04/21 Elver Garnett MD [address] [place] [phone] PCP - General 02/05/21 Self-Referred, Patient Referring Physician 09/07/18 Self-Referred, Patient 09/17/18 Lola Foster MD [address] [place] [phone] [email or web address] Medical Oncology 09/25/18 Alaina Landaverde MD [address] [address] Medical Oncology 09/25/18 Sadia Cardona DO [address] [place] [phone] Surgical Oncology 09/25/18 documented as of this encounter Additional Source Comments The information contained in this document represents components of the legal health record. It is not the complete legal health record.[facility]
--- OUTSIDE RECORDS SUMMARY | 2025-05-13 22:29 | XMS_ITS | Clinical Summary ---
Author Organization [facility], Address [address] [place] [address] Phone Care Team Providers Care Scale And Skip Car Operator Name Role Phone Unavailable Primary Care [...] 12/20/2020 Influenza Vaccine (#1) 2025 Insurance [facility]
--- OUTSIDE RECORDS SUMMARY | 2025-05-13 22:30 | XMS_ITS | Clinical Summary ---
Author Organization [facility] Address [address] [place] [address] Phone Care Team Providers Care Call Or Contact Centre Team Leader Name Role Phone Self-Referred, Patient Unavailable Unavailab le Self-Referred, Patient Unavailable Unavailab le Lola Foster MD Unavailable [phone] Alaina Landaverde MD Unavailable Sadia Cardona DO Unavailable [phone] Elver Garnett MD Primary Care Provider Social [...] 02/24/2019 3: 04 PM EDT Copied from [facility] 09/25/18 Body Mass Index 31.53 [...] Relevant to Health Maintenance Insurance O [facility] [address] [place] [address] [place] [address] [place], [place] [address]O [facility] HMO Care Teams Call Or Contact Centre Team Leader Relationship Specialty Start Date End Date Elver Garnett MD [address] [place] [address] [phone] PCP - General 02/05/21 Self-Referred, Patient Referring Physician 09/07/18 Self-Referred, Patient 09/17/18 Lola Foster MD [address] [place] [phone] [email or web address] Medical Oncology 09/25/18 Alaina [facility]verde MD [facility] [address] [address] Medical Oncology 09/25/18 Sadia Cardona DO [address] [place] [phone] Surgical Oncology 09/25/18 Additional Source Comments The information contained in this document represents components of the legal health record. It is not the complete legal health record.[facility]
== END 2025-05-13 14:52 | disposition home or self-care (01) ==
LOC: HO.LAB 14:51
PROVIDERS: PCP Family Medicine; Visit Provider Family Medicine
DX: Z00.00 Encounter for general adult medical examination without abnormal findings (principal); E78.5 Hyperlipidemia, unspecified
CPT/HCPCS: 36415; 80053; 80061; 81001; 87086

== ENCOUNTER 2025-05-16 11:59 | Outpatient (AMB) | payer OTHER, SELFPAY ==
--- NOTE | 2025-05-16 12:01 | A.OFFPC_ITS ---
Vital Signs 05/16/25 12:05 Height 5 ft 2 in Weight 182 lb BMI 33.3 BP 120/70 Blood Pressure Location Rt brachial Position Sitting Respiration 16 Pulse 75 Pulse Source Pulse Oximeter Temp 98.3 F Temp Source Oral Pulse Oximetry (%) 96 Oxygen Delivery Method Room Air Intake Visit Reasons: f/u HTN, chronic conditions Intake Note: patient is scheduled to review labs and htn Donor Services Team Leader Required: No Allergies environmental allergies Allergy (Intermediate, Verified 05/16/25 12:04) Runny Nose erythromycin base Allergy (Unknown, Verified 05/16/25 12:04) Hives paclitaxel (From Taxol) Allergy (Unknown, Verified 05/16/25 12:04) Unknown Iodinated Contrast Media Allergy (Verified 05/16/25 12:04) Hives Tobacco use date assessed: 02/10/25 Dental Screening Dental Screen Date: 02/10/25 HPI f/u HTN, chronic conditions HPI Details 54 y/o female presents to f/u HTN, HLD, liver enzymes. Labs drawn 05/13/25. Reviewed labs with pt. Triglycerides 213. TC 246. LDL 148. HDL 56. Liver enzymes now within normal range. Blood pressure today 120/70, 75p. She is on hydrochlorothiazide 12.5mg daily. HPI Comments History of Present Illness Details Documentation assistance for Elver Garnett MD, was provided by Faustino Silveira, Pharmacy Technician Program Director on 05/16/2025 at 12:12 PM EST. I, Dr. Garnett, have read, observed, and verified documentation. [facility] Medical History Vaginitis No pertinent past medical history Surgical History History of reconstruction of both breasts History of mastectomy H/O laparoscopy History of oral surgery Family History Father Depression HTN (hypertension) CVD (cardiovascular disease) Mother Arrhythmia Anxiety Eating disorder Maternal Grandmother Lung cancer Maternal Grandfather Lupus Emphysema, unspecified Paternal Grandmother Anorexia Heart failure Paternal Grandfather Heart disease Parkinson disease Brother No problems noted. Sister No problems noted. Social History Housing: House Alcohol intake: never Patient Tobacco Use Status: Never used Tobacco e-Cigarette/Vaping Use: Never Used Second Hand Smoke Exposure: No service: No Current occupational status: unemployed Current occupational exposures/hazards: No Cognitive needs: No Hearing needs: No Vision needs: No Questionnaire Thrive Questionnaire Date Thrive assessed: 10/26/24 I am a: Patient What is your living situation today?: I have a steady place to live Within the past 12 months, did the food you bought not last and you didn't have the money to get more?: Never true Within the past 12 months, did you worry whether your food would run out before you got money to buy more?: Never true Do you have trouble paying for medicines?: No Do you have trouble getting transportation to medical appointments?: No Do you have trouble paying your heating and electricity bill?: No Do you have trouble taking care of your child, family member or friend?: No Do you have trouble with day-to-day activities such as bathing, preparing meals, shopping, managing finances, etc.?: Yes Are you currently unemployed and looking for a job?: I choose not to answer this question Are you interested in more education?: No Please select the resources that you would like help with: None Currently or been in a relationship where the following occur: No concerns reported THRIVE Score: 0 NOHEMI-7 AMB Questionnaire NOHEMI-7 Date NOHEMI - 7 assessed: 10/28/24 Source: Developed by Drs. Jay Jay Mcintosh, Edyta Verduzco, Bryan Hensley and colleagues, with an educational kathi from [employer] Review of Systems Const Denies chills, Denies fatigue, Denies fever(s), Denies headache(s) and Denies weakness ENT Denies dizziness and Denies headache(s) Card Denies dyspnea Resp Denies cough, Denies dyspnea, Denies wheezing and Denies other (shortness of breath) Musc Denies numbness and Denies tingling Neuro Denies dizziness, Denies headache(s), Denies numbness, Denies tingling and Denies weakness Psych Denies anxiety and Denies depression Endo Denies fatigue Aller/Immun Denies wheezing Physical exam (Primary Care) Vital Signs: Last Vital Signs Temp 98.3 F 05/16/25 12:05 Pulse 75 05/16/25 12:05 Resp 16 05/16/25 12:05 BP 120/70 05/16/25 12:05 Pulse Ox 96 05/16/25 12:05 Oxygen Delivery Method Room Air 05/16/25 12:05 BMI result Body Mass Index 33.3 Tobacco/Smoking Status: Tobacco use Status Tobacco use date assessed 02/10/25 05/16/25 12:01 Patient Tobacco Use Status Never used Tobacco 05/16/25 12:01 e-Cigarette/Vaping Use Never Used 05/16/25 12:01 Thrive Assessment: Date of Thrive Assessment Date Thrive assessed 10/26/24 05/16/25 12:01 Currently or been in a relationship where the following occur: No concerns reported Const General: well developed; No acute distress Nutritional Appearance: well nourished Orientation/consciousness: patient oriented x3 HENMT Head: Yes normocephalic and Yes atraumatic Eyes General: appearance normal, both eyes and all related structures Pupils: Equal, round and reactive pupils present EOM: EOMs intact bilaterally Resp Effort & Inspection: normal respiratory effort Neuro General: patient oriented x3 and gait normal Cranial nerves: Yes Equal, round and reactive pupils present Psych Affect: normal affect Coding Level of Care Code Est Pt Level 4 (25617) Diagnoses Essential hypertension I10 Hyperlipidemia E78.5 Elevated liver enzymes R74.8 Difficulty sleeping G47.9 Assessment & Plan Assessment & Plan (1) Essential hypertension: Code(s): I10 - Essential (primary) hypertension Category: Medical Plan: Blood pressure is controlled. Goal is less than 140/90 Continue current medication Patient also had mild tachycardia and her GFR was slightly low - had encouraged good hydration. Will continue to monitor this as her hydrochlorothiazide could be attributing to dehydration and lowered GFR. Would adjust hydrochlorothiazide were discontinue if needed. (2) Hyperlipidemia: Code(s): E78.5 - Hyperlipidemia, unspecified Category: Medical Plan: LDL cholesterol is still too high. Goal is less than 100 She notes that she is on anastrozole which can be responsible for about 5-10% elevation in LDL cholesterol. However, this would still that her cholesterol levels are still likely in the 130s to 140s without anastrozole. Will have her try atorvastatin for elevated lipids. Recheck in 3 months (3) Elevated liver enzymes: Code(s): R74.8 - Abnormal levels of other serum enzymes Category: Medical Plan: Liver enzymes back within normal range with better hydration. (4) Difficulty sleeping: Code(s): G47.9 - Sleep disorder, unspecified Category: Medical Plan: Still having difficulty sleeping. No difficulty with staying asleep once she falls asleep. Going to bed around 01:00 a.m. Encouraged her to try to bring her bedtime earlier He can continue trazodone Medications: New atorvastatin (Lipitor) 20 mg PO BEDTIME 90 tabs 3RF 90 days
[2025-05-16 12:05] VITALS: BP 120/70; PULSE 75; RESP 16; TEMP 36.8; O2SAT 96; BMI 33.3
== END 2025-05-16 12:40 | disposition home or self-care (01) ==
LOC: HO.HMCFM 11:59
PROVIDERS: PCP Family Medicine; Visit Provider Family Medicine
DX: I10 Essential (primary) hypertension (principal); E78.5 Hyperlipidemia, unspecified; R74.8 Abnormal levels of other serum enzymes; G47.9 Sleep disorder, unspecified

== ENCOUNTER 2025-06-06 16:23 | Outpatient (AMB) | payer OTHER, SELFPAY ==
--- OUTSIDE RECORDS SUMMARY | 2025-06-07 01:53 | XMS_ITS | Encounter Summary ---
Author Organization [facility] Address [address] [facility] [address] [place] [address] Phone Care Team Providers Care Traffic Law Attorney Name Role Phone Radha Arce MD, MPH Primary Care Provid er Self-Referred, Patient Unavailable Unavailab le Self-Referred, Patient Unavailable Unavailab le Lola Foster MD Unavailable [phone] Alaina Landaverde MD Unavailable [phone] Sadia Cardona DO Unavailable [phone] Elver Garnett MD Primary Care Provider Encounter Details Date Type Department Care Team (Late st Contact Info) Description 09/25/2018 Procedure Pass DF IMG OUTSIDE IMG [address] [place] [address] Social History Tobacco Use Types Packs/Day Years [...] on filedocumented in this encounter Care Teams Traffic Law Attorney Relationship Specialty Start Date End Date Radha Arce MD, MPH [address] [place] [address] [address] [email or web address] PCP - General Family Medicine 09/07/18 02/04/21 Elver Garnett MD [address] [place] [phone] PCP - General 02/05/21 Self-Referred, Patient Referring Physician 09/07/18 Self-Referred, Patient 09/17/18 Lola Foster MD [address] [place] [phone] [email or web address] Medical Oncology 09/25/18 Alaina Landaverde MD [address] [address] Medical Oncology 09/25/18 Sadia Cardona DO [address] [place] [phone] Surgical Oncology 09/25/18 documented as of this encounter Additional Source Comments The information contained in this document represents components of the legal health record. It is not the complete legal health record.[facility]
--- OUTSIDE RECORDS SUMMARY | 2025-06-07 01:53 | XMS_ITS | Clinical Summary ---
Author Organization [facility] Address [address] [place] [address] Phone Care Team Providers Care Assisted Living Manager Name Role Phone Self-Referred, Patient Unavailable Unavailab le Self-Referred, Patient Unavailable Unavailab le Lola Foster MD Unavailable [phone] Alaina Landaverde MD Unavailable [phone] Sadia Cardona DO Unavailable [phone] Elver Garnett MD Primary Care Provider Social [...] lb 9.7 oz) 02/24/2019 3:04 PM EDT [facility] Height 158.5 cm (5' 2.4 ) 02/24/2019 3: 04 PM EDT Copied from [facility] 09/25/18 Body Mass Index 31.53 02/24/2019 3:04 [...] Relevant to Health Maintenance Insurance O [address] [place], [place] [address] [place], [place] [address]O [facility] [address] [place] [address] [place] [address]O [employer] Care Teams Assisted Living Manager Relationship Specialty Start Date End Date Elver Garnett MD [address] [place] [address] PCP - General 02/05/21 Self-Referred, Patient Referring Physician 09/07/18 Self-Referred, Patient 09/17/18 Lola Foster MD [address] [place] [phone] [email or web address] Medical Oncology 09/25/18 Alaina Landaverde MD [address] [place] [phone] Medical Oncology 09/25/18 Sadia Cardona DO [address] [place] [phone] Surgical Oncology 09/25/18 Additional Source Comments The information contained in this document represents components of the legal health record. It is not the complete legal health record.[facility]
== END 2025-06-06 16:23 | disposition home or self-care (01) ==
LOC: HO.HMGAL 16:23
PROVIDERS: PCP Family Medicine; Visit Provider Registered Nurse Emergency
DX: J30.89 Other allergic rhinitis (principal)
CPT/HCPCS: 95117; 95165

== ENCOUNTER 2025-06-20 16:24 | Outpatient (AMB) | payer OTHER, SELFPAY ==
--- OUTSIDE RECORDS SUMMARY | 2025-06-20 18:50 | XMS_ITS | Clinical Summary ---
Author Organization [facility], Address [address] [place] [address] Phone Care Team Providers Care Graphic User Interface Designer Name Role Phone Unavailable Primary Care Provider [...] 12/20/2020 Influenza Vaccine (#1) 2025 Insurance [facility]
--- OUTSIDE RECORDS SUMMARY | 2025-06-20 18:50 | XMS_ITS | Clinical Summary ---
Author Organization [facility] Address [address] [place] [address] Phone Care Team Providers Care Business Banker Name Role Phone Self-Referred, Patient Unavailable Unavailab le Self-Referred, Patient Unavailable Unavailab le Lola Foster MD Unavailable [phone] Alaina Landaverde MD Unavailable [phone] Sadia Cardona DO Unavailable [phone] Elver Garnett MD Primary Care Provider Social [...] 02/24/2019 3: 04 PM EDT Copied from [facility] 09/25/18 Body Mass Index 31.53 02/24/2019 [...] Relevant to Health Maintenance Insurance O [address] [place], [place] [address] [place], [place] [address] [address] [place] [address] [place] [address] [facility] Address: [facility] [address] [place] [address] Care Teams Business Banker Relationship Specialty Start Date End Date Elver Garnett MD [address] [place] [address] PCP - General 02/05/21 Self-Referred, Patient Referring Physician 09/07/18 Self-Referred, Patient 09/17/18 Lola Foster MD [address] [place] [phone] [email or web address] Medical Oncology 09/25/18 Alaina Landaverde MD [address] [place] [phone] Medical Oncology 09/25/18 Sadia Cardona DO [address] [place] [phone] Surgical Oncology 09/25/18 Additional Source Comments The information contained in this document represents components of the legal health record. It is not the complete legal health record.[facility]
--- OUTSIDE RECORDS SUMMARY | 2025-06-20 18:50 | XMS_ITS | Encounter Summary ---
Author Organization [facility] Address [address] [facility] [address] [place] [address] Phone Care Team Providers Care Casting And Locker Room Servicer Name Role Phone Radha Arce MD, MPH Primary Care Provid er Self-Referred, Patient Unavailable Unavailab le Self-Referred, Patient Unavailable Unavailab le Lola Foster MD Unavailable [phone] Alaina Landaverde MD Unavailable [phone] Sadia Cardona DO Unavailable [phone] Elver Garnett MD Primary Care Provider Encounter Details Date Type Department Care Team (Late st Contact Info) Description 09/25/2018 Procedure Pass DF IMG OUTSIDE IMG [address] [place] [address] Social History Tobacco Use Types Packs/Day Years [...] on filedocumented in this encounter Care Teams Casting And Locker Room Servicer Relationship Specialty Start Date End Date Radha Arce MD, MPH [address] [place] [address] [address] [email or web address] PCP - General Family Medicine 09/07/18 02/04/21 Elver Garnett MD [address] [place] [phone] PCP - General 02/05/21 Self-Referred, Patient Referring Physician 09/07/18 Self-Referred, Patient 09/17/18 Lola Foster MD [address] [place] [address] [email or web address] Medical Oncology 09/25/18 Alaina Landaverde MD [address] [address] Medical Oncology 09/25/18 Sadia Cardona DO [address] [place] [phone] Surgical Oncology 09/25/18 documented as of this encounter Additional Source Comments The information contained in this document represents components of the legal health record. It is not the complete legal health record.[facility]
== END 2025-06-20 16:25 | disposition home or self-care (01) ==
LOC: HO.HMGAL 16:24
PROVIDERS: PCP Family Medicine; Visit Provider Registered Nurse Emergency
DX: J30.89 Other allergic rhinitis (principal)
CPT/HCPCS: 95117; 95165